=== PATIENT | male | born 1965 | race Caucasian/White ===

== ENCOUNTER 2018-01-02 19:27 | Inpatient (IN) | payer OTHER, MEDICAID ==
[~2018-01-02] VITALS: Ht 170.2 cm; Wt 77.1 kg
[~2018-01-02 19:27] MED LIST: GABA300C PO; LEVO500T6 PO; PHEN-329 PO; TAMS0.4C96 PO; TRAM50TA3 PO
[2018-01-02 19:37] VITALS: BP 114/56
[2018-01-02] MEDS ORDERED: ACETAMINOPHEN EXTRA STRENGTH 500 MG TAB PO ONE (19:45)
[2018-01-02] MEDS ORDERED: ONDANSETRON 4 MG/2 ML VIAL IVP ONE (20:15)
[2018-01-02] MEDS ORDERED: NACL 0.9% 1,000 ML IV ONE ×2 (20:15→23:30)
[2018-01-02 21:08] LABS: BASOPHILS # (AUTO) 0.2 K/uL (0.00-0.22); EOSINOPHILS % (AUTO) 0.2 % (0.0-4.0); HEMATOCRIT 32.5 % (36-52); HEMOGLOBIN 11.2 g/dL (12.0-18.0); LYMPHOCYTES % (AUTO) 10.7 % (20.5-51.1); MEAN CORPUSCULAR HEMOGLOBIN 35 pg (27-31); MEAN CORPUSCULAR HGB CONC 35 g/dL (33-37); MONOCYTES # (AUTO) 1.2 K/uL (0.8-1.0); MONOCYTES % (AUTO) 6.6 % (1.7-9.3); NEUTROPHILS # (AUTO) 15.1 K/uL (1.8-7.7); NEUTROPHILS % (AUTO) 81.5 % (42.2-75.2); PLATELET COUNT (AUTO) 142 K/uL (140-450); RED BLOOD CELL COUNT(AUTO) 3.18 MIL/uL (4.20-6.10); WHITE BLOOD COUNT (AUTO) 18.5 K/uL (4.8-10.8)
[2018-01-02 21:37] LABS: ALBUMIN 1.4 g/dL (3.4-5.0); ANION GAP 18.1 (8-16); CARBON DIOXIDE 22.8 mmol/L (21-32); CREATININE 1.1 mg/dL (0.7-1.3); TOTAL BILIRUBIN 1.5 mg/dL (0.0-1.0)
[2018-01-02 21:40] LABS: POTASSIUM 2.9 mmol/L (3.5-5.1)
[2018-01-02] MEDS ORDERED: KCL 20 MEQ/WATER INJ PREMIX 100 ML IV ONE (21:40)
[2018-01-02] MEDS ORDERED: metroNIDAZOLE 500 MG/NS PREMIX 100 ML IV ONE (23:30)
[2018-01-02] MEDS ORDERED: LEVOFLOXACIN 750 MG/D5W PREMIX 150 ML IV ONE (23:30)
[2018-01-02] MEDS ORDERED: ZOLPIDEM 5 MG TAB PO PRN (23:35)
[2018-01-02] MEDS ORDERED: DOCUSATE SODIUM 100 MG GELCAP PO PRN (23:35)
[2018-01-02] MEDS ORDERED: LORazepam 2 MG/ML VIAL IM/IVP PRN (23:35)
[2018-01-02] MEDS ORDERED: ACETAMINOPHEN 325 MG TAB PO PRN (23:35)
[2018-01-02] MEDS ORDERED: HYDROcodone/APAP 5/325 MG 1 TAB TAB PO PRN (23:35)
[2018-01-02] MEDS ORDERED: traMADol 50 MG TAB PO PRN (23:45)
[2018-01-03] MEDS ORDERED: NACL 0.9% 1,000 ML IV SCH
[2018-01-03 00:03] LABS: PROTHROMBIN TIME 10.8 secs (10.8-13.4)
[2018-01-03 00:05] LABS: PHOSPHORUS 1.2 mg/dL (2.5-4.9); THYROID STIMULATING HORMONE 1.7 uIU/mL (0.34-3.74)
[2018-01-03] MEDS ORDERED: INSULIN LISPRO SLIDING SCALE 100 UNITS/ML VIAL SUBQ PRN (00:15)
[2018-01-03] MEDS ORDERED: DEXTROSE 50% 50 ML SYR IVP PRN (00:15)
[2018-01-03 00:35] VITALS: BP 114/73
[2018-01-03 01:01] LABS: CHOL/HDL RATIO 15.8 (1-4.5)
[2018-01-03] MEDS ORDERED: SODIUM PHOS / POTASSIUM PHOS 1 PKT PDR PO SCH ×2 (03:00→13:00)
[2018-01-03] MEDS ORDERED: Z-GUARD PASTE TP PRN (03:30)
[2018-01-03 04:31] LABS: APPEARANCE,URINE SL CLOUDY (CLEAR); BILIRUBIN,URINE SMALL (NEGATIVE); BLOOD, URINE LARGE (NEGATIVE); COLOR,URINE YELLOW (YELLOW); NITRITE, URINE NEGATIVE (NEGATIVE); UGLUCOSE NEGATIVE (NEGATIVE)
[2018-01-03 04:32] LABS: LEUKOCYTE ESTERASE ,URINE 2+ (NEGATIVE)
[2018-01-03 04:35] LABS: BARBITURATE, URINE NEG. ng/ml (NEG <=200); BENZODIAZEPINE, URINE NEG. ng/mL (NEG <=200); CANNABINOID, URINE NEG. ng/mL (NEG <=50); COCAINE, URINE NEG. ng/mL (NEG <=300); PHENCYCLIDINE SCREEN,URINE NEG. ng/mL (NEG <=25)
[2018-01-03 04:37] LABS: RBC,URINE 3-10 (FEW) /HPF (0-5)
[2018-01-03 05:50] LABS: OPIATE, URINE NEG. ng/mL (NEG <=2000)
[2018-01-03 05:54] VITALS: BP 112/70
[2018-01-03] MEDS: metroNIDAZOLE 500 MG/NS PREMIX 100 ML IV SCH ×3 (06:35→23:37)
[2018-01-03] MEDS: BLOOD GLUCOSE MONITORING 1 DEV DEV FS SCH ×4 (06:38→20:53)
[2018-01-03 07:39] LABS: HEMATOCRIT 30.3 % (36-52); HEMOGLOBIN 10.3 g/dL (12.0-18.0); MEAN CORPUSCULAR HEMOGLOBIN 35 pg (27-31); MEAN CORPUSCULAR HGB CONC 34 g/dL (33-37); MEAN CORPUSCULAR VOLUME 103.1 fL (80-94); PLATELET COUNT (AUTO) 127 K/uL (140-450); RED BLOOD CELL COUNT(AUTO) 2.94 MIL/uL (4.20-6.10); RED CELL DISTRIBUTION WIDTH 14.1 % (11.6-13.7); WHITE BLOOD COUNT (AUTO) 17.5 K/uL (4.8-10.8)
[2018-01-03 08:00] VITALS: BP 117/61
[2018-01-03] MEDS: ONDANSETRON 4 MG/2 ML VIAL IM/IVP PRN ×2 (08:16→14:42)
[2018-01-03] MEDS: PHENAZOPYRIDINE 100 MG TAB PO SCH ×3 (08:16→17:07)
[2018-01-03] MEDS: GABAPENTIN 300 MG CAP PO SCH ×3 (08:16→17:07)
[2018-01-03 08:19] LABS: LYMPHOCYTES % (MANUAL) 7 % (20-46); MONOCYTES % (MANUAL) 7 % (5-12)
[2018-01-03] MEDS: LACTOBACILLUS RHAMNOSUS GG 1 EACH CAP PO SCH (08:19)
[2018-01-03] MEDS: DEXT 5% /NACL 0.9% 1,000 ML IV SCH ×3 (08:19→19:40)
[2018-01-03 08:48] LABS: ANION GAP 13.7 (8-16); CARBON DIOXIDE 25.9 mmol/L (21-32); CREATININE 1.1 mg/dL (0.7-1.3); POTASSIUM 3.6 mmol/L (3.5-5.1)
[2018-01-03 08:58] LABS: PHOSPHORUS 1.6 mg/dL (2.5-4.9)
[2018-01-03] MEDS ORDERED: SKINTEGRITY HYDROGEL TP SCH (10:00)
[2018-01-03 12:00] VITALS: BP 124/77
[2018-01-03] MEDS ORDERED: THERAHONEY GEL 42.5 GM TP SCH (12:00)
[2018-01-03 13:44] LABS: ANION GAP 13.6 (8-16); CARBON DIOXIDE 26.1 mmol/L (21-32); CREATININE 1.1 mg/dL (0.7-1.3); POTASSIUM 3.7 mmol/L (3.5-5.1)
[2018-01-03] MEDS: HYDRAGUARD CREAM TP SCH (14:25)
[2018-01-03] MEDS ORDERED: BENZOCAINE/MENTHOL 1 LOZ MM PRN (15:10)
[2018-01-03] MEDS ORDERED: SIMETHICONE 80 MG TAB.CHEW PO PRN (15:10)
[2018-01-03 16:00] VITALS: BP 130/78
[2018-01-03 20:00] VITALS: BP 102/59
[2018-01-03] MEDS: TAMSULOSIN 0.4 MG CAP PO SCH (21:01)
[2018-01-04] VITALS: BP 92/51
[2018-01-04] MEDS: HYDRAGUARD CREAM TP SCH ×2 (00:25→13:51)
[2018-01-04] MEDS: LEVOFLOXACIN 750 MG/D5W PREMIX 150 ML IV SCH ×2 (00:25→23:12)
[2018-01-04 04:00] VITALS: BP 119/75
[2018-01-04] MEDS: DEXT 5% /NACL 0.9% 1,000 ML IV SCH ×3 (04:01→19:00)
[2018-01-04] MEDS: BLOOD GLUCOSE MONITORING 1 DEV DEV FS SCH ×3 (05:45→17:09)
[2018-01-04] MEDS: metroNIDAZOLE 500 MG/NS PREMIX 100 ML IV SCH ×3 (06:15→22:05)
[2018-01-04 07:53] LABS: HEMATOCRIT 30.2 % (36-52); HEMOGLOBIN 10.3 g/dL (12.0-18.0); MEAN CORPUSCULAR HEMOGLOBIN 36 pg (27-31); MEAN CORPUSCULAR HGB CONC 34 g/dL (33-37); MEAN CORPUSCULAR VOLUME 104.9 fL (80-94); PLATELET COUNT (AUTO) 141 K/uL (140-450); RED BLOOD CELL COUNT(AUTO) 2.88 MIL/uL (4.20-6.10); RED CELL DISTRIBUTION WIDTH 13.9 % (11.6-13.7); WHITE BLOOD COUNT (AUTO) 15.5 K/uL (4.8-10.8)
[2018-01-04 08:00] VITALS: BP_SYST 126; BP_SYST 140; BP_DIAS 68; BP_DIAS 84
[2018-01-04 08:12] LABS: ANION GAP 8.9 (8-16); CARBON DIOXIDE 28.1 mmol/L (21-32); CREATININE 0.9 mg/dL (0.7-1.3)
[2018-01-04 08:17] LABS: MAGNESIUM 1.9 mg/dL (1.8-2.4); PHOSPHORUS 2.1 mg/dL (2.5-4.9)
[2018-01-04] MEDS: ASCORBIC ACID 500 MG TAB PO SCH (08:29)
[2018-01-04] MEDS: GABAPENTIN 300 MG CAP PO SCH ×3 (08:29→17:44)
[2018-01-04] MEDS: FERROUS GLUCONATE 324 MG TAB PO SCH (08:29)
[2018-01-04] MEDS: PHENAZOPYRIDINE 100 MG TAB PO SCH ×3 (08:30→17:44)
[2018-01-04] MEDS: LACTOBACILLUS RHAMNOSUS GG 1 EACH CAP PO SCH (08:31)
[2018-01-04 08:45] LABS: BASOPHILS % (MANUAL) 0 % (0-2); EOSINOPHILS % (MANUAL) 0 % (0-4); LYMPHOCYTES % (MANUAL) 11 % (20-46); MONOCYTES % (MANUAL) 7 % (5-12)
[2018-01-04] MEDS ORDERED: THERAHONEY GEL 42.5 GM TP SCH (09:00)
[2018-01-04] MEDS ORDERED: SODIUM PHOS / POTASSIUM PHOS 1 PKT PDR PO SCH (09:00)
[2018-01-04] MEDS: THERAHONEY GEL 42.5 GM TP SCH (10:04)
[2018-01-04 12:00] VITALS: BP 140/84
[2018-01-04] MEDS ORDERED: POTASSIUM CHLORIDE 10 MEQ TABER PO SCH (13:30)
[2018-01-04 16:00] VITALS: BP 142/89
[2018-01-04 20:00] VITALS: BP 164/89
[2018-01-04] MEDS: TAMSULOSIN 0.4 MG CAP PO SCH (20:27)
[2018-01-04] MEDS: ONDANSETRON 4 MG/2 ML VIAL IM/IVP PRN (20:32)
[2018-01-05] VITALS: BP 104/62
[2018-01-05] MEDS: HYDRAGUARD CREAM TP SCH ×2 (01:00→13:18)
[2018-01-05] MEDS: DEXT 5% /NACL 0.9% 1,000 ML IV SCH ×2 (01:01→06:35)
[2018-01-05 04:00] VITALS: BP 134/80
[2018-01-05] MEDS: metroNIDAZOLE 500 MG/NS PREMIX 100 ML IV SCH ×2 (06:27→15:44)
[2018-01-05 07:10] LABS: HEMATOCRIT 29.9 % (36-52); HEMOGLOBIN 10.2 g/dL (12.0-18.0); MEAN CORPUSCULAR HEMOGLOBIN 36 pg (27-31); MEAN CORPUSCULAR HGB CONC 34 g/dL (33-37); MEAN CORPUSCULAR VOLUME 104.4 fL (80-94); PLATELET COUNT (AUTO) 169 K/uL (140-450); RED BLOOD CELL COUNT(AUTO) 2.87 MIL/uL (4.20-6.10); RED CELL DISTRIBUTION WIDTH 14.2 % (11.6-13.7)
[2018-01-05 07:44] LABS: LYMPHOCYTES % (MANUAL) 14 % (20-46); METAMYELOCYTES % 3 % (0-0); MONOCYTES % (MANUAL) 8 % (5-12)
[2018-01-05 07:49] LABS: MAGNESIUM 1.6 mg/dL (1.8-2.4); PHOSPHORUS 1.7 mg/dL (2.5-4.9)
[2018-01-05 08:00] VITALS: BP 133/82
[2018-01-05] MEDS: GABAPENTIN 300 MG CAP PO SCH ×3 (08:22→17:15)
[2018-01-05] MEDS: FERROUS GLUCONATE 324 MG TAB PO SCH (08:22)
[2018-01-05] MEDS: ASCORBIC ACID 500 MG TAB PO SCH (08:22)
[2018-01-05] MEDS: LACTOBACILLUS RHAMNOSUS GG 1 EACH CAP PO SCH (08:23)
[2018-01-05] MEDS: PHENAZOPYRIDINE 100 MG TAB PO SCH ×2 (08:23→13:18)
[2018-01-05] MEDS: THERAHONEY GEL 42.5 GM TP SCH (08:26)
[2018-01-05 09:50] LABS: POTASSIUM 3.3 mmol/L (3.5-5.1)
[2018-01-05 09:51] LABS: ANION GAP 11.4 (8-16); CARBON DIOXIDE 23.9 mmol/L (21-32); CREATININE 0.9 mg/dL (0.7-1.3)
[2018-01-05] MEDS ORDERED: POTASSIUM CHLORIDE 10 MEQ TABER PO SCH (14:00)
[2018-01-05] MEDS ORDERED: MAG SULF 2000 MG/WATER PREMIX 100 ML IV ONE (15:45)
[2018-01-05 16:00] VITALS: BP 135/80
[2018-01-05] MEDS ORDERED: SODIUM PHOS / POTASSIUM PHOS 1 PKT PDR PO SCH (16:00)
[2018-01-05] MEDS ORDERED: HYDROCOLLOID DRESSING TP PRN (16:00)
[2018-01-05] MEDS ORDERED: MAGNESIUM SULFATE 4GM in STERILE WATER 100 ML PREMIX IV SCH (17:00)
[2018-01-05] MEDS: NACL 0.9% 1,000 ML IV SCH (17:13)
[2018-01-05] MEDS: HYDROCOLLOID DRESSING TP SCH ×2 (17:19→21:11)
[2018-01-05] MEDS: PIPER/TAZO 3.375GM/D5W PREMIX 50 ML IV SCH (19:02)
[2018-01-05] MEDS: TAMSULOSIN 0.4 MG CAP PO SCH (21:00)
[2018-01-06 00:30] VITALS: BP 135/80
[2018-01-06] MEDS: HYDRAGUARD CREAM TP SCH ×2 (00:35→12:29)
[2018-01-06] MEDS: PIPER/TAZO 3.375GM/D5W PREMIX 50 ML IV SCH ×3 (00:35→12:27)
[2018-01-06 07:03] LABS: HEMATOCRIT 30.7 % (36-52); HEMOGLOBIN 10.3 g/dL (12.0-18.0); MEAN CORPUSCULAR HEMOGLOBIN 35 pg (27-31); MEAN CORPUSCULAR HGB CONC 34 g/dL (33-37); MEAN CORPUSCULAR VOLUME 104.4 fL (80-94); PLATELET COUNT (AUTO) 184 K/uL (140-450); RED BLOOD CELL COUNT(AUTO) 2.94 MIL/uL (4.20-6.10); RED CELL DISTRIBUTION WIDTH 14.3 % (11.6-13.7); WHITE BLOOD COUNT (AUTO) 18.3 K/uL (4.8-10.8)
[2018-01-06 07:07] LABS: ANION GAP 6.9 (8-16); CARBON DIOXIDE 26.8 mmol/L (21-32); CREATININE 0.8 mg/dL (0.7-1.3); POTASSIUM 3.7 mmol/L (3.5-5.1)
[2018-01-06 07:19] LABS: MAGNESIUM 2.2 mg/dL (1.8-2.4); PHOSPHORUS 1.8 mg/dL (2.5-4.9)
[2018-01-06] MEDS ORDERED: ZGUARD TP (07:43)
[2018-01-06] MEDS ORDERED: Hydraguard TP (07:43)
[2018-01-06] MEDS ORDERED: Therahoney Gel TP (07:43)
[2018-01-06] MEDS ORDERED: ONDA2SOL45 IM/IVP (07:43)
[2018-01-06] MEDS ORDERED: ACET-9525 PO (07:43)
[2018-01-06] MEDS ORDERED: MULT-405 PO (07:43)
[2018-01-06] MEDS ORDERED: BENZ1LOZ93 MM (07:43)
[2018-01-06 08:00] VITALS: BP 131/84
[2018-01-06 08:28] LABS: LYMPHOCYTES % (MANUAL) 15 % (20-46); MONOCYTES % (MANUAL) 7 % (5-12)
[2018-01-06] MEDS: ASCORBIC ACID 500 MG TAB PO SCH (08:45)
[2018-01-06] MEDS: LACTOBACILLUS RHAMNOSUS GG 1 EACH CAP PO SCH (08:45)
[2018-01-06] MEDS: GABAPENTIN 300 MG CAP PO SCH ×2 (08:45→12:27)
[2018-01-06] MEDS: FERROUS GLUCONATE 324 MG TAB PO SCH (08:46)
[2018-01-06] MEDS: THERAHONEY GEL 42.5 GM TP SCH (08:51)
[2018-01-06] MEDS: NACL 0.9% 1,000 ML IV SCH (08:52)
[2018-01-06] MEDS ORDERED: MULTIVITAMIN 1 TAB PO SCH (09:00)
[2018-01-06] MEDS ORDERED: PIPE1SOL IV (09:16)
== END 2018-01-06 13:10 | DRG 871 ==
LOC: MED 19:27 → MTU 23:34
PROVIDERS: ADMIT General Practice; ATTEND General Practice
DX: A41.51 Sepsis due to Escherichia coli [E. coli] (principal); L89.323 Pressure ulcer of left buttock, stage 3; L89.313 Pressure ulcer of right buttock, stage 3; L89.154 Pressure ulcer of sacral region, stage 4; E43 Unspecified severe protein-calorie malnutrition; D68.59 Other primary thrombophilia; E87.1 Hypo-osmolality and hyponatremia; G82.20 Paraplegia, unspecified; L03.317 Cellulitis of buttock; N12 Tubulo-interstitial nephritis, not specified as acute or chronic; E83.39 Other disorders of phosphorus metabolism; D50.9 Iron deficiency anemia, unspecified; R65.20 Severe sepsis without septic shock; K52.9 Noninfective gastroenteritis and colitis, unspecified; R74.0 Nonspecific elevation of levels of transaminase and lactic acid dehydrogenase [LDH]; D69.6 Thrombocytopenia, unspecified; N20.0 Calculus of kidney; E11.40 Type 2 diabetes mellitus with diabetic neuropathy, unspecified; L30.9 Dermatitis, unspecified; R32 Unspecified urinary incontinence; B96.20 Unspecified Escherichia coli [E. coli] as the cause of diseases classified elsewhere; R94.5 Abnormal results of liver function studies; R15.9 Full incontinence of feces; E78.5 Hyperlipidemia, unspecified; E83.42 Hypomagnesemia; N31.9 Neuromuscular dysfunction of bladder, unspecified; D75.89 Other specified diseases of blood and blood-forming organs; E87.6 Hypokalemia; E11.65 Type 2 diabetes mellitus with hyperglycemia; Z68.26 Body mass index [BMI] 26.0-26.9, adult; Z87.891 Personal history of nicotine dependence; Z79.899 Other long term (current) drug therapy
CPT/HCPCS: 36415; 71045; 74250; 76700; 76770; 80048; 80053; 80305; 81001; 82607; 82728; 82746; 82948; 83036; 83540; 83605; 83690; 83735; 84100; 84134; 84443; 85025; 85045; 85610; 85730; 87040; 87070; 87081; 87086; 87186; 87804; 93005; 93925; 93970; 96361; 96365; 96375; 99285; A6248; C1758; J1644; J1815; J1956; J2405; J2543; J3480; J3490; J7030; J7042; Q0092

== ENCOUNTER 2018-01-12 19:22 | Inpatient (IN) | payer OTHER, MEDICAID ==
[~2018-01-12] VITALS: Ht 170.2 cm; Wt 87.1 kg
[~2018-01-12 19:22] MED LIST changes: +ACET-9525 PO; +BENZ1LOZ93 MM; +Hydraguard TP; -LEVO500T6 PO; +MULT-405 PO; +ONDA2SOL45 IM/IVP; +PIPE1SOL IV; +Therahoney Gel TP; +ZGUARD TP
[2018-01-12 19:26] VITALS: BP 136/86
--- NOTE | 2018-01-12 19:26 | NUR ---
PT BIB [facility] TO ER BED 4T
--- NOTE | 2018-01-12 19:30 | NUR ---
52 YO MALE BIBA FROM [facility]. PT STATES HE WAS DISCHARGED RECENTLY FROM [facility] FOR BLOOD INFECTION. PT AAOX4 FOLLOWING COMMANDS. ST 120S BLE +3-4 EDEMA PRESENT SCROTAL EDEMA. ABD SOFT NON DISTENDED, PT INCONTINENT WITH ADULT PAD IN PLACE, SKIN NON INTACT, SKIN BREAKDOWN TO SACRAL AREA NOTED. REDNESS TO JUVE, AREA AND GENITAL AREA NOTED. PMH: NEUROGENIC BLADDER, BACTEREMIA, PARAPLEGIA TO BLE, BACTERMIA, MDRO
[2018-01-12] MEDS ORDERED: FURO-572 PO (19:40)
[2018-01-12] MEDS ORDERED: POTA10TE30 PO (19:40)
[2018-01-12 20:12] LABS: HEMATOCRIT 27.2 % (36-52); HEMOGLOBIN 9.1 g/dL (12.0-18.0); MEAN CORPUSCULAR HEMOGLOBIN 35 pg (27-31); MEAN CORPUSCULAR HGB CONC 33 g/dL (33-37); MEAN CORPUSCULAR VOLUME 105.6 fL (80-94); PLATELET COUNT (AUTO) 346 K/uL (140-450); RED BLOOD CELL COUNT(AUTO) 2.58 MIL/uL (4.20-6.10); RED CELL DISTRIBUTION WIDTH 14.5 % (11.6-13.7); WHITE BLOOD COUNT (AUTO) 26.5 K/uL (4.8-10.8)
[2018-01-12 20:36] LABS: ANION GAP 14.1 (8-16); CARBON DIOXIDE 28.6 mmol/L (21-32); CREATININE 0.8 mg/dL (0.7-1.3); POTASSIUM 3.7 mmol/L (3.5-5.1)
[2018-01-12 20:41] LABS: ALBUMIN 1.6 g/dL (3.4-5.0); TOTAL BILIRUBIN 0.5 mg/dL (0.0-1.0)
[2018-01-12 20:49] LABS: EOSINOPHILS % (MANUAL) 2 % (0-4); LYMPHOCYTES % (MANUAL) 13 % (20-46); MONOCYTES % (MANUAL) 4 % (5-12)
--- NOTE | 2018-01-12 21:30 | NUR ---
PT SITTING UP IN BED DENIES PAIN @ THIS TIME. VSS WILL CONTINUE TO MONITOR.
[2018-01-12] MEDS ORDERED: PIPERACILLIN/TAZOBACTAM 3.375 GM in DEXTROSE 5% 50 ML IV ONE (21:40)
[2018-01-12] MEDS ORDERED: NACL 0.9% 1,500 ML IV ONE (21:40)
[2018-01-12] MEDS ORDERED: PIPERACILLIN/TAZOBACTAM 3.375 GM VIAL IV ONE (22:15)
[2018-01-12] MEDS ORDERED: NACL 0.9% 1,000 ML IV ONE ×2 (22:35→23:00)
[2018-01-12] MEDS ORDERED: HYDROcodone/APAP 7.5/325 MG 1 TAB PO PRN (22:50)
[2018-01-12] MEDS ORDERED: DOCUSATE SODIUM 100 MG GELCAP PO PRN (22:50)
[2018-01-12] MEDS ORDERED: ACETAMINOPHEN 325 MG TAB PO PRN (22:50)
[2018-01-12] MEDS ORDERED: ONDANSETRON 4 MG/2 ML VIAL IM/IVP PRN (22:50)
[2018-01-12] MEDS: NACL 0.9% 1,000 ML IV SCH (23:12)
[2018-01-13 00:09] LABS: PROTHROMBIN TIME 9.8 secs (10.8-13.4)
--- NOTE | 2018-01-13 00:15 | NUR ---
Patient will be admitted to care of DR. HAY. Admited to 113A, [facility] Belongings list completed. Report to PB SZYMANSKI.
[2018-01-13 00:20] LABS: CHOL/HDL RATIO 7.2 (1-4.5); FREE T4 (FREE THYROXINE) 0.98 ng/dL (0.76-1.46); MAGNESIUM 1.6 mg/dL (1.8-2.4); PHOSPHORUS 3.1 mg/dL (2.5-4.9); THYROID STIMULATING HORMONE 6.39 uIU/mL (0.34-3.74)
[2018-01-13 00:30] VITALS: BP 128/78
--- NOTE | 2018-01-13 00:30 | NUR ---
RECEIVED BEDSIDE REPORT FROM STEPHON SALDAÑA, PATIENT TRANSPORTED FROM [facility] TO BED, ON RA, NO SIGNS OF ACUTE DISTRESS, ONE IV IN LEFT FA 20 G SL, 2ND IN RIGHT AC 20 G, NOTED BRUISING. PATIENT STATES "IT HURTS", D/C IV IN RIGHT AC. NOTED EDEMA IN LOWER EXTREMITIES, 3+ PITTING, NOTED WOUND ON RIGHT AND LEFT BUTTOCK, PICTURE TAKEN IN ER. V/S TAKEN BP 128/76, HR 117, TEMP 98.9 F, RR 18 O2SAT 98%, DENIES PAIN. MRSA SCREEN COLLECTED AND SENT TO LAB, WOUND SAMPLE COLLECTED AND SENT TO LAB. LUNG SOUNDS ARE CLEAR. EXPLAINED PLAN OF CARE, UPDATED BOARD, BED ALARM ON. CALL LIGHT WITHIN REACH, WILL CONTINUE TO MONITOR. Addendum: 01/13/18 at 0605 by Marybeth Tena RN LUNG SOUNDS DIMINISHED
[2018-01-13 00:44] LABS: BARBITURATE, URINE NEG. ng/ml (NEG <=200); BENZODIAZEPINE, URINE NEG. ng/mL (NEG <=200); CANNABINOID, URINE NEG. ng/mL (NEG <=50); COCAINE, URINE NEG. ng/mL (NEG <=300); OPIATE, URINE NEG. ng/mL (NEG <=2000); PHENCYCLIDINE SCREEN,URINE NEG. ng/mL (NEG <=25)
[2018-01-13 01:01] LABS: APPEARANCE,URINE CLEAR (CLEAR); BILIRUBIN,URINE NEGATIVE (NEGATIVE); BLOOD, URINE NEGATIVE (NEGATIVE); COLOR,URINE YELLOW (YELLOW); LEUKOCYTE ESTERASE ,URINE NEGATIVE (NEGATIVE); NITRITE, URINE NEGATIVE (NEGATIVE); PH,URINE 5.5 (5.0-9.0); UGLUCOSE NEGATIVE (NEGATIVE)
[2018-01-13] MEDS: NACL 0.9% 1,000 ML IV SCH ×2 (01:07→09:41)
--- NOTE | 2018-01-13 01:07 | NUR ---
STARTED IVF WITH NS AT 100 ML/HR IN LEFT FA 20 G.
[2018-01-13] MEDS ORDERED: MAGNESIUM OXIDE 400 MG TAB PO ONE (01:15)
--- NOTE | 2018-01-13 02:24 | NUR ---
DUE MAG OX GIVEN PATIENT TOLERATED WELL. EDUCATION PROVIDED.
[2018-01-13 04:00] VITALS: BP 118/77
--- NOTE | 2018-01-13 04:30 | NUR ---
REPOSITIONED PATIENT FOR COMFORT, APPLIED DRESSING TO WOUND AND CLEANSED, PATIENT HAD 1 LARGE BM.
[2018-01-13] MEDS ORDERED: ALBUTEROL SULFATE/IPRATROPIU 3 ML SOL IH PRN (06:05)
--- NOTE | 2018-01-13 06:05 | NUR ---
PATIENT RESTING IN BED, NO SIGNS OF DISTRESS, CALL LIGHT WITH IN REACH.
[2018-01-13 06:51] LABS: HEMATOCRIT 26.9 % (36-52); HEMOGLOBIN 8.9 g/dL (12.0-18.0); MEAN CORPUSCULAR HEMOGLOBIN 35 pg (27-31); MEAN CORPUSCULAR HGB CONC 33 g/dL (33-37); PLATELET COUNT (AUTO) 324 K/uL (140-450); RED BLOOD CELL COUNT(AUTO) 2.52 MIL/uL (4.20-6.10); RED CELL DISTRIBUTION WIDTH 14.4 % (11.6-13.7); WHITE BLOOD COUNT (AUTO) 23.2 K/uL (4.8-10.8)
[2018-01-13 07:17] LABS: LYMPHOCYTES % (MANUAL) 15 % (20-46)
[2018-01-13 07:18] LABS: EOSINOPHILS % (MANUAL) 4 % (0-4); MONOCYTES % (MANUAL) 3 % (5-12)
--- NOTE | 2018-01-13 07:28 | NUR ---
ENDORSED PATIENT TO DAY SHIFT NURSE PATIENT STABLE.
[2018-01-13 07:31] LABS: ANION GAP 11.2 (8-16); CARBON DIOXIDE 28.2 mmol/L (21-32); CREATININE 0.6 mg/dL (0.7-1.3); POTASSIUM 3.4 mmol/L (3.5-5.1)
[2018-01-13 08:00] VITALS: BP 120/70
--- NOTE | 2018-01-13 08:00 | NUR ---
PATIENT WAS AWAKE, ALERT. RESPIRATION EVEN, UNLABOR ON ROOM AIR. SKIN DRY AND WARM. IV PATENT AND INTACT. DENIED PAIN, SOB AT THIS TIME. PLAN OF CARE WAS DISCUSSED WITH PATIENT. BED AT LOW POSITION, SIDE RAILS UP. CALL LIGHT WITHIN REACH.
[2018-01-13] MEDS ORDERED: VANCOMYCIN PER PHARMACY MC PRN (08:05)
--- NOTE | 2018-01-13 08:33 | NUR ---
PATIENT HAS BEEN SCREENED AND CATEGORIZED HIGH NUTRITION RISK. PATIENT WILL BE SEEN WITHIN 1-2 DAYS OF ADMISSION. 01/13/18-01/14/[address]
[2018-01-13] MEDS ORDERED: VANCOMYCIN 1GM/DEXT 5% PREMIX 200 ML IV SCH (09:00)
[2018-01-13] MEDS: GABAPENTIN 300 MG CAP PO SCH ×3 (09:04→17:06)
[2018-01-13] MEDS: FOLIC ACID 1 MG TAB PO SCH (09:04)
[2018-01-13] MEDS: FUROSEMIDE 20 MG TAB PO SCH ×2 (09:04→20:51)
[2018-01-13] MEDS: MAGNESIUM OXIDE 400 MG TAB PO SCH (09:04)
[2018-01-13] MEDS: CYANOCOBALAMIN 100 MCG TAB PO SCH (09:04)
[2018-01-13] MEDS ORDERED: POTASSIUM CHLORIDE 10 MEQ TABER PO SCH (09:30)
[2018-01-13] MEDS: VANCOMYCIN 1,250 MG in DEXTROSE 5% 250 ML IV SCH ×2 (09:42→17:47)
[2018-01-13 10:09] LABS: MAGNESIUM 1.6 mg/dL (1.8-2.4); PHOSPHORUS 2.7 mg/dL (2.5-4.9)
--- NOTE | 2018-01-13 10:09 | NUR ---
PATIENT WAS AWAKE, ALERT. RESPIRATION EVEN, UNLABOR ON ROOM AIR. MEDS WERE GIVEN PER ORDER. WOUND DRESSING WAS CHANGED, DENIED PAIN. PATIENT TOLERATED WELL. NO DISTRESS NOTED. CALL LIGHT WITHIN REACH
--- NOTE | 2018-01-13 10:30 | NUR ---
PERINEAL CARE WAS GIVEN, WOUND DRESSING WAS CHANGED
--- NOTE | 2018-01-13 11:54 | NUR ---
PATIENT WAS AWAKE, ALERT. RESPIRATION EVEN, UNLABOR ON ROOM AIR. DENIED PAIN AT THIS TIME. IV PATENT AND INTACT. NO DISTRESS NOTED. CALL LIGHT WITHIN REACH
[2018-01-13 12:00] VITALS: BP 117/69
[2018-01-13] MEDS: PIPER/TAZO 3.375GM/D5W PREMIX 50 ML IV SCH ×2 (12:22→17:06)
--- NOTE | 2018-01-13 12:25 | NUR ---
Business Unit Leader Note: On previous patient's hospital admission, patient was transfer to [facility] for continuity of care. I called Sung at [facility] to ask him if patient is on a 7 day bed hold, no answer, left message.
--- NOTE | 2018-01-13 13:24 | NUR ---
Men'S Garment Fitter Note: On previous patient's hospital admission, patient was transfer to [facility] for continuity of care. I called Sung at [facility] again to ask him if patient is on a 7 day bed hold, per Sung, patient is on a 7 day bed hold. Patient is one of [facility] skilled patients, not [facility] [employer] (group home care). Patient makes his own medical decisions. Flat Examiner and/or Leather Heel Breaster will follow up as needed.
--- NOTE | 2018-01-13 13:52 | NUR ---
PATIENT WAS AWAKE, ALERT. RESPIRATION EVEN, UNLABOR ON ROOM AIR. PATIENT WAS REPOSITIONED, PERINEAL CARE WAS GIVEN. WOUND DRESSING WERE CHANGED
--- NOTE | 2018-01-13 15:20 | NUR ---
01/13/18 RD INITIAL ASSESSMENT COMPLETED PLEASE REFER TO NUTRITION ASSESSMENT UNDER CARE ACTIVITY FOR ESTIMATED NUTRITIONAL NEEDS. 1. CONTINUE REGULAR DIET WITH ENSURE TOLERATED 2. RECOMMEND VITAMIN C 500 MG BID AND ZINC 200 MG QD TO PROMOTE WOUND HEALING 3. RD PROVIDED NUTRITION EDUCATION ON WOUND HEALING 4. RD TO FOLLOW-UP 5-7 DAYS, LOW RISK EDNTON PIERCE RD
--- NOTE | 2018-01-13 15:45 | NUR ---
IVF RATE WAS ADJUSTED 50CC/HR PER ORDER
[2018-01-13 16:00] VITALS: BP 128/74
--- NOTE | 2018-01-13 16:11 | NUR ---
PATIENT WAS AWAKE, ALERT. RESPIRATION EVEN, UNLABOR ON ROOM AIR. DENIED PAIN, N/V AT THIS TIME. IV PATENT AND INTACT. NO DISTRESS NOTED. CALL LIGHT WITHIN REACH
--- NOTE | 2018-01-13 16:43 | NUR ---
PATIENT WAS REPOSITIONED TO LEFT LATERAL, PERINEAL CARE WAS GIVEN. WOUND DRESSINGS WAS CHANGED. PATIENT TOLERATED WELL
[2018-01-13] MEDS ORDERED: SPIRONOLACTONE 25 MG TAB PO SCH (16:57)
--- NOTE | 2018-01-13 17:53 | NUR ---
PATIENT WAS AWAKE, ALERT, EATING DINNER COMFORTABLY. RESPIRATION EVEN, UNLABOR ON ROOM AIR. IV PATENT AND INTACT. MED WAS GIVEN PER ORDER. NO DISTRESS NOTED. CALL LIGHT WITHIN REACH
--- NOTE | 2018-01-13 19:22 | NUR ---
RECEIVED BEDSIDE REPORT FROM RN BRIAN, PATIENT IN BED, ON RA, FALL AND CONTACT PRECAUTIONS, IV IN LEFT FA INFUSING NS AT 50. PATIENT V/S TAKEN ALL WITHIN BASELINE, DENIES PAIN, REPOSITIONED FOR COMFORT. EXPLAINED PLAN OF CARE UPDATED BOARD WILL CONTINUE TO MONITOR.
--- NOTE | 2018-01-13 19:22 | NUR ---
ENDORSEMENT GIVEN TO CATTLE AND WHEAT FARMER NURSE. PATIENT IS STABLE AT THIS TIME
[2018-01-13 20:00] VITALS: BP 122/74
[2018-01-13] MEDS: TAMSULOSIN 0.4 MG CAP PO SCH (20:50)
[2018-01-13] MEDS: ATORVASTATIN 20 MG TAB PO SCH (20:50)
--- NOTE | 2018-01-13 21:00 | NUR ---
DUE MEDICATIONS GIVEN PATIENT TOLERATED WELL. WILL CONTINUE TO MONITOR.
[2018-01-14] VITALS: BP 113/63
--- NOTE | 2018-01-14 | NUR ---
V/S TAKEN NOTED HR 120. WILL CONTINUE TO MONITOR.
[2018-01-14] MEDS: PIPER/TAZO 3.375GM/D5W PREMIX 50 ML IV SCH ×5 (00:20→23:14)
--- NOTE | 2018-01-14 01:00 | NUR ---
CHANGES DRESSING, PATIENT DENIES PAIN WILL CONTINUE TO MONITOR.
[2018-01-14] MEDS: VANCOMYCIN 1,250 MG in DEXTROSE 5% 250 ML IV SCH (02:04)
--- NOTE | 2018-01-14 02:30 | NUR ---
DUE MEDICATIONS GIVEN PATIENT TOLERATED WELL WILL CONTINUE TO MONITOR.
[2018-01-14 04:00] VITALS: BP 118/70
--- NOTE | 2018-01-14 06:00 | NUR ---
PATIENT RESTING IN BED, DUE ANTIBIOTICS COMPLETED, CHANGED DRESSING ON SACRAL WOUND.
[2018-01-14 06:54] LABS: BASOPHILS # (AUTO) 0.2 K/uL (0.00-0.22); BASOPHILS % (AUTO) 1.4 % (0.0-2.0); EOSINOPHILS # (AUTO) 0.3 K/uL (0-0.4); EOSINOPHILS % (AUTO) 1.6 % (0.0-4.0); HEMATOCRIT 24.6 % (36-52); HEMOGLOBIN 8.3 g/dL (12.0-18.0); LYMPHOCYTES % (AUTO) 12.6 % (20.5-51.1); MEAN CORPUSCULAR HEMOGLOBIN 36 pg (27-31); MEAN CORPUSCULAR HGB CONC 34 g/dL (33-37); MONOCYTES # (AUTO) 0.9 K/uL (0.8-1.0); MONOCYTES % (AUTO) 5.8 % (1.7-9.3); NEUTROPHILS # (AUTO) 12.2 K/uL (1.8-7.7); NEUTROPHILS % (AUTO) 78.6 % (42.2-75.2); PLATELET COUNT (AUTO) 301 K/uL (140-450); RED CELL DISTRIBUTION WIDTH 14.2 % (11.6-13.7); WHITE BLOOD COUNT (AUTO) 15.6 K/uL (4.8-10.8)
[2018-01-14 07:02] LABS: ANION GAP 10.1 (8-16); CARBON DIOXIDE 28.5 mmol/L (21-32); CREATININE 0.7 mg/dL (0.7-1.3); POTASSIUM 3.6 mmol/L (3.5-5.1)
[2018-01-14 07:17] LABS: MAGNESIUM 1.7 mg/dL (1.8-2.4); PHOSPHORUS 2.4 mg/dL (2.5-4.9)
--- NOTE | 2018-01-14 07:29 | NUR ---
ENDORSED PATIENT TO DAY SHIFT NURSE, PATIENT STABLE.
--- NOTE | 2018-01-14 07:30 | NUR ---
RECEIVED REPORT FROM OFFICE MESSENGER NURSE. PATIENT LYING DOWN IN BED SLEEPING, AROUSABLE BY VOICE. NO DISTRESS NOTED. DENIES ANY PAIN. AAOX4, CALM, COOPERATIVE, SKIN COLOR APPROPRIATE TO ETHNICITY, WARM TO TOUCH. HAS SACRAL WOUNDS. WOUND NURSE EVAL SCHEDULED FOR LATER TODAY. RESPIRATIONS EVEN, UNLABORED, ON ROOM AIR. IV SITE INTACT, PATENT, AND INFUSING IVF PER MD ORDERS. B/L LE +2 PITTING EDEMA NOTED. SCROTAL EDEMA NOTED. REVIEWED PLAN OF CARE WITH PATIENT. PATIENT VERBALIZED UNDERSTANDING. SAFETY MEASURES IN PLACE, CALL LIGHT WITHIN REACH. WILL CONTINUE TO MONITOR.
[2018-01-14 08:00] VITALS: BP 112/63
[2018-01-14 08:41] LABS: T4 (THYROXINE) 4.9 ug/dL (4.5-12.0)
[2018-01-14] MEDS ORDERED: SPIRONOLACTONE 50 MG TAB PO SCH (09:00)
[2018-01-14] MEDS: ECOTRIN 81 MG TABEC PO SCH (09:27)
[2018-01-14] MEDS: FUROSEMIDE 20 MG TAB PO SCH ×2 (09:28→20:17)
[2018-01-14] MEDS: FOLIC ACID 1 MG TAB PO SCH (09:28)
[2018-01-14] MEDS: SPIRONOLACTONE 25 MG TAB PO SCH (09:29)
[2018-01-14] MEDS: ZINC SULF 220 MG CAP PO SCH (09:29)
[2018-01-14] MEDS: CYANOCOBALAMIN 100 MCG TAB PO SCH (09:29)
[2018-01-14] MEDS: MAGNESIUM OXIDE 400 MG TAB PO SCH (09:29)
[2018-01-14] MEDS: ASCORBIC ACID 500 MG TAB PO SCH (09:30)
[2018-01-14] MEDS: GABAPENTIN 300 MG CAP PO SCH ×3 (09:30→17:07)
[2018-01-14] MEDS: NACL 0.9% 1,000 ML IV SCH ×2 (09:35→14:50)
--- NOTE | 2018-01-14 09:41 | NUR ---
PATIENT SITTING IN BED COMFORTABLY. NO DISTRESS NOTED. DENIES ANY PAIN. ASSISTED HOME HEALTH SPECIALIST IN CLEANING. SACRAL WOUND DRESSING SOILED, CHANGED PER ORDERS. FECAL BAG APPLIED PATIENT AGREES TO TRY IT TO KEEP SACRAL WOUND FROM GETTING SOILED. SCHEDULED MEDICATIONS DUE GIVEN. WILL CONTINUE TO MONITOR.
--- NOTE | 2018-01-14 11:30 | NUR ---
PATIENT SITTING IN BED WATCHING TV. NO DISTRESS NOTED. CONDITION UNCHANGED. WILL CONTINUE TO MONITOR.
[2018-01-14 12:00] VITALS: BP 129/80
--- NOTE | 2018-01-14 13:30 | NUR ---
ASSISTED INVESTIGATION MANAGER IN CLEANING AND REPOSITIONING PATIENT. WILL CONTINUE TO MONITOR.
--- NOTE | 2018-01-14 14:24 | NUR ---
Bar Machine Operator Production Note: Michael from [facility] came to evaluate and meet with patient. Per Michael, patient is hesitant to be transfer to [facility] and stated he would prefer to return to [facility] , Michael stated he informed of patient's preference and will speak with patient and discuss plan of care.
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
[2018-01-14 16:00] VITALS: BP 125/72
[2018-01-14] MEDS ORDERED: MAGNESIUM OXIDE 400 MG TAB PO SCH (16:00)
[2018-01-14] MEDS ORDERED: SODIUM PHOS / POTASSIUM PHOS 1 PKT PDR PO SCH (16:00)
--- NOTE | 2018-01-14 17:09 | NUR ---
PATIENT SITTING IN BED WATCHING TV. NO DISTRESS NOTED. DENIES ANY PAIN. SCHEDULED MEDICATIONS DUE GIVEN. WILL CONTINUE TO MONITOR.
--- NOTE | 2018-01-14 19:30 | NUR ---
GAVE REPORT TO OUTBOUND SALES CONSULTANT NURSE FOR CONTINUITY OF CARE. PATIENT IN STABLE CONDITION.
--- NOTE | 2018-01-14 19:31 | NUR ---
REPORT RECEIVED FROM AM NURSE AT BEDSIDE. PT IN STABLE CONDITION. AAOX4. INTRODUCED SELF. BOARD UPDATED. PT HAS NO COMPLAINTS OF PAIN. NO SOB. PT AFEBRILE. IV SITE L FA 20G RUNNING NS@50ML/HR PATENT AND INTACT. SKIN WARM, DRY, AND NOT INTACT DUE TO AN OPEN WOUND FROM THE PERIANAL TO THE SACRAL AREA. BED LOCKED IN LOW POSITION. CALL GUARDADO WITHIN REACH. SAFETY PRECAUTIONS IN PLACE.
[2018-01-14 20:00] VITALS: BP 117/63
[2018-01-14] MEDS: TAMSULOSIN 0.4 MG CAP PO SCH (20:17)
[2018-01-14] MEDS: ATORVASTATIN 20 MG TAB PO SCH (20:17)
--- NOTE | 2018-01-14 20:17 | NUR ---
LASIX, FLOMAX, AND LIPITOR GIVEN PO. PT TOLERATED WELL.
--- NOTE | 2018-01-14 23:14 | NUR ---
RAFY HUNG AND RUNNING. PT TOLERATING WELL.
[2018-01-15] VITALS: BP 119/66
--- NOTE | 2018-01-15 01:45 | NUR ---
PT SLEEPING COMFORTABLY IN BED. NO S/S OF DISTRESS NOTED. WILL CONTINUE TO MONITOR.
--- NOTE | 2018-01-15 03:15 | NUR ---
PT SLEEPING COMFORTABLY BUT AROUSEABLE. VS ARE STABLE. NO S/S OF DISTRESS NOTED. WILL CONTINUE TO MONITOR.
[2018-01-15 04:00] VITALS: BP 113/66
--- NOTE | 2018-01-15 04:35 | NUR ---
VANCO TROUGH IS DUE TO BE DRAWN AT 0500 ON 01/16/18 BUT VANCO IS DUE ON 01/15 AT 0500. NOTIFIED OF THIS MISTAKE AND WILL CHANGE THE VANCO TROUGH TO NOW.
[2018-01-15] MEDS ORDERED: VANCOMYCIN 1GM/DEXT 5% PREMIX 200 ML IV SCH (05:00)
[2018-01-15] MEDS: PIPER/TAZO 3.375GM/D5W PREMIX 50 ML IV SCH ×2 (05:13→12:04)
--- NOTE | 2018-01-15 05:13 | NUR ---
RAFY HUNG AND RUNNING. PT TOLERATING WELL.
[2018-01-15 05:45] LABS: BASOPHILS # (AUTO) 0.2 K/uL (0.00-0.22); BASOPHILS % (AUTO) 1.1 % (0.0-2.0); EOSINOPHILS # (AUTO) 0.3 K/uL (0-0.4); EOSINOPHILS % (AUTO) 1.7 % (0.0-4.0); HEMATOCRIT 26.4 % (36-52); HEMOGLOBIN 8.7 g/dL (12.0-18.0); LYMPHOCYTES # (AUTO) 2.9 K/uL (2.0-11.5); LYMPHOCYTES % (AUTO) 16.4 % (20.5-51.1); MEAN CORPUSCULAR HEMOGLOBIN 35 pg (27-31); MEAN CORPUSCULAR HGB CONC 33 g/dL (33-37); MEAN CORPUSCULAR VOLUME 106.2 fL (80-94); MONOCYTES # (AUTO) 0.8 K/uL (0.8-1.0); MONOCYTES % (AUTO) 4.5 % (1.7-9.3); NEUTROPHILS # (AUTO) 13.5 K/uL (1.8-7.7); NEUTROPHILS % (AUTO) 76.3 % (42.2-75.2); PLATELET COUNT (AUTO) 366 K/uL (140-450); RED BLOOD CELL COUNT(AUTO) 2.49 MIL/uL (4.20-6.10); WHITE BLOOD COUNT (AUTO) 17.8 K/uL (4.8-10.8)
[2018-01-15 05:53] LABS: CREATININE 0.8 mg/dL (0.7-1.3)
--- NOTE | 2018-01-15 06:09 | NUR ---
VANCO TROUGH WAS 8.3. RESULTED @0608. ORDERS TO START VANCO IS TROUGH IS UNDER 20. VANCO HUNG AND RUNNING.
--- NOTE | 2018-01-15 07:25 | NUR ---
REPORT GIVEN TO AM NURSE AT BEDSIDE. PT IN STABLE CONDITION.
--- NOTE | 2018-01-15 07:30 | NUR ---
RECEIVED PATIENT AWAKE IN BED. NO S/S OF DISTRESS NOTED. PT ON TELE MONITORING. FALL PRECAUTIONS IN PLACE. WILL CONTINUE TO MONITOR
[2018-01-15 09:24] VITALS: BP 113/58
[2018-01-15] MEDS: MAGNESIUM OXIDE 400 MG TAB PO SCH (09:26)
[2018-01-15] MEDS: ZINC SULF 220 MG CAP PO SCH (09:26)
[2018-01-15] MEDS: ECOTRIN 81 MG TABEC PO SCH (09:26)
[2018-01-15] MEDS: GABAPENTIN 300 MG CAP PO SCH ×3 (09:26→16:45)
[2018-01-15] MEDS: FOLIC ACID 1 MG TAB PO SCH (09:27)
[2018-01-15] MEDS: FUROSEMIDE 20 MG TAB PO SCH ×2 (09:27→20:30)
[2018-01-15] MEDS: ASCORBIC ACID 500 MG TAB PO SCH (09:27)
[2018-01-15] MEDS: CYANOCOBALAMIN 100 MCG TAB PO SCH (09:27)
[2018-01-15] MEDS: SPIRONOLACTONE 25 MG TAB PO SCH (09:28)
--- NOTE | 2018-01-15 10:16 | NUR ---
Auto Body Repairer Note: I faxed patient's medical information to [facility]. I informed Jing from [facility] / plan is to transfer patient back to [facility] tomorrow.
--- NOTE | 2018-01-15 11:00 | NUR ---
PATIENT AWAKE IN BED, WATCHING TELEVISION. NO S/S OF DISTRESS NOTED
[2018-01-15 12:00] VITALS: BP 130/73
[2018-01-15] MEDS: NACL 0.9% 1,000 ML IV SCH (12:00)
[2018-01-15] MEDS ORDERED: HYDRAGUARD CREAM TP PRN (12:20)
[2018-01-15] MEDS ORDERED: Z-GUARD PASTE TP PRN (12:20)
[2018-01-15 12:51] LABS: PHOSPHORUS 2.8 mg/dL (2.5-4.9)
[2018-01-15] MEDS: HYDRAGUARD CREAM TP SCH (15:30)
[2018-01-15] MEDS: Z-GUARD PASTE TP SCH (15:30)
--- NOTE | 2018-01-15 15:30 | NUR ---
PATIENT TURNED AND REPOSITIONED FOR COMFORT. WOUND CARE DONE. DRESSING CHANGED PER WOUND CARE NURSE'S RECOMMENDATION
[2018-01-15 16:43] VITALS: BP 125/71
--- NOTE | 2018-01-15 19:15 | NUR ---
PATIENT REPORT GIVEN AT BEDSIDE. PATIENT ENDORSED IN STABLE CONDITION
--- NOTE | 2018-01-15 19:16 | NUR ---
REPORT RECEIVED FROM AM NURSE AT BEDSIDE. PT IN STABLE CONDITION. AAOX4. INTRODUCED SELF. BOARD UPDATED. NO COMPLAINTS OF PAIN. NO SOB. PT AFEBRILE. IV SITE L FA 20G RUNNING NS@50ML/HR PATENT AND INTACT. SKIN WARM, DRY, AND NOT INTACT DUE TO AN OPEN WOUNDS ON THE BUTTOCKS THAT GOES TO THE SACRAL AREA. WOUND BED LOCKED IN LOW POSITION. CALL GUARDADO WITHIN REACH. SAFETY PRECAUTIONS IN PLACE.
[2018-01-15 20:00] VITALS: BP 112/70
--- NOTE | 2018-01-15 20:19 | NUR ---
GRANT PAYAN AND WILMER. HEPARIN GIVEN SUBQ. PT TOLERATED WELL. Addendum: 01/16/18 at 0023 by John Rendon RN CHARTED ON WRONG PT.
[2018-01-15] MEDS: TAMSULOSIN 0.4 MG CAP PO SCH (20:29)
[2018-01-15] MEDS: MEROPENEM 1,000 MG in NACL 0.9% 100 ML IV SCH (20:30)
[2018-01-15] MEDS: ATORVASTATIN 20 MG TAB PO SCH (20:30)
--- NOTE | 2018-01-15 20:30 | NUR ---
LIPITOR, FLOMAX, AND LASIX GIVEN PO. PT TOLERATED WELL. MICHAEL HUNG AND RUNNING.
--- NOTE | 2018-01-15 20:47 | NUR ---
GRETCHEN GIVEN PO FOR SLEEP. PT TOLERATED WELL. Addendum: 01/16/18 at 0016 by John Rendon RN WRONG PT CHARTED ON.
--- NOTE | 2018-01-15 22:15 | NUR ---
PT LAYING IN BED WATCHING TV COMFORTABLY. NO S/S OF DISTRESS NOTED. WILL CONTINUE TO MONITOR.
[2018-01-16] VITALS: BP 126/66
[2018-01-16] MEDS: HYDRAGUARD CREAM TP SCH ×2 (00:14→13:50)
[2018-01-16] MEDS: Z-GUARD PASTE TP SCH ×2 (00:15→13:50)
--- NOTE | 2018-01-16 00:15 | NUR ---
HYDRAGUARD AND ZGAURD APPLIED DURING WOUND CARE. PT TOLERATED WELL.
--- NOTE | 2018-01-16 02:45 | NUR ---
PT SLEEPING COMFORTABLY IN BED SUPINE. NO S/S OF DISTRESS NOTED. RESPIRATIONS EVEN, UNLABORED, AND WNL. WILL CONTINUE TO MONITOR.
[2018-01-16 04:00] VITALS: BP 126/70
[2018-01-16] MEDS: MEROPENEM 1,000 MG in NACL 0.9% 100 ML IV SCH ×2 (04:07→13:00)
--- NOTE | 2018-01-16 04:07 | NUR ---
MICHAEL HUNG AND RUNNING. PT TOLERATING WELL.
--- NOTE | 2018-01-16 04:30 | NUR ---
PT HAD A BM. WOUND CARE DONE ON PT. HYDRAGUARD AND ZGUARD APPLIED AND COVERED IN OPTIFOAM. WOUND NOW HAS SEROUS BLEEDING. WILL INFORM MD AND ENDORSE TO AM SHIFT.
[2018-01-16 06:47] LABS: ANION GAP 10.9 (8-16); CARBON DIOXIDE 28.6 mmol/L (21-32); CREATININE 0.8 mg/dL (0.7-1.3); POTASSIUM 3.5 mmol/L (3.5-5.1)
[2018-01-16 06:50] LABS: PHOSPHORUS 3.6 mg/dL (2.5-4.9)
[2018-01-16 06:57] LABS: BASOPHILS # (AUTO) 0.1 K/uL (0.00-0.22); BASOPHILS % (AUTO) 0.9 % (0.0-2.0); EOSINOPHILS # (AUTO) 0.3 K/uL (0-0.4); EOSINOPHILS % (AUTO) 1.9 % (0.0-4.0); HEMATOCRIT 27.1 % (36-52); LYMPHOCYTES # (AUTO) 2.3 K/uL (2.0-11.5); LYMPHOCYTES % (AUTO) 14.2 % (20.5-51.1); MEAN CORPUSCULAR HEMOGLOBIN 35 pg (27-31); MEAN CORPUSCULAR HGB CONC 33 g/dL (33-37); MEAN CORPUSCULAR VOLUME 105.5 fL (80-94); MONOCYTES # (AUTO) 0.9 K/uL (0.8-1.0); MONOCYTES % (AUTO) 5.5 % (1.7-9.3); NEUTROPHILS # (AUTO) 12.7 K/uL (1.8-7.7); NEUTROPHILS % (AUTO) 77.5 % (42.2-75.2); PLATELET COUNT (AUTO) 355 K/uL (140-450); RED BLOOD CELL COUNT(AUTO) 2.57 MIL/uL (4.20-6.10); RED CELL DISTRIBUTION WIDTH 14.1 % (11.6-13.7); WHITE BLOOD COUNT (AUTO) 16.4 K/uL (4.8-10.8)
--- NOTE | 2018-01-16 07:05 | NUR ---
REPORT GIVEN TO AM NURSE AT BEDSIDE. PT IN STABLE CONDITION.
--- NOTE | 2018-01-16 07:06 | NUR ---
RECEIVED REPORT FROM PM NURSE AT BEDSIDE. PT LYING ON HIS BED, WATCHING TV. PT IS ON CONTACT ISOLATION FOR MDRO IN WOUND AND ECOLI. IS PARAPLEGIC, ON FALL RISK PRECAUTION. PT HAS LFT FA 20 G, IVF NS INFUSING AT 1OO ML/HR. DENIES ANY PAIN AT THIS TIME. NO SIGN OF DISTRESS NOTED. CALL LIGHT WITHIN PT REACH. UPDATED BOARD AND INTRODUCED SELF. ASKED HIM TO USE CALL LIGHT FOR ANY HELP. WILL CONTINUE TO MONITOR PT.
[2018-01-16] MEDS: NACL 0.9% 1,000 ML IV SCH (07:26)
[2018-01-16 07:49] VITALS: BP 121/77
[2018-01-16] MEDS: ZINC SULF 220 MG CAP PO SCH (09:04)
[2018-01-16] MEDS: FOLIC ACID 1 MG TAB PO SCH (09:04)
[2018-01-16] MEDS: GABAPENTIN 300 MG CAP PO SCH ×2 (09:04→14:36)
[2018-01-16] MEDS: FUROSEMIDE 20 MG TAB PO SCH (09:05)
[2018-01-16] MEDS: ECOTRIN 81 MG TABEC PO SCH (09:05)
[2018-01-16] MEDS: CYANOCOBALAMIN 100 MCG TAB PO SCH (09:05)
[2018-01-16] MEDS: ASCORBIC ACID 500 MG TAB PO SCH (09:05)
[2018-01-16] MEDS: SPIRONOLACTONE 25 MG TAB PO SCH (09:06)
[2018-01-16] MEDS: MAGNESIUM OXIDE 400 MG TAB PO SCH (09:06)
--- NOTE | 2018-01-16 09:11 | NUR ---
ADMINISTERED MEDS TO PT ORDERED. TOLERATED WELL. PT ASKING FOR TOWEL, GAVE HIM TOWEL. DENIES ANY PAIN. CALL LIGHT WITHIN PT REACH. ASKED HIM TO USE CALL LIGHT FOR HELP. WILL CONTINUE TO MONITOR PT.
--- NOTE | 2018-01-16 10:14 | NUR ---
SPOKE WITH GLORIA AT [facility]. SHE IS AWARE PATIENT IS MDRO SACRUM.
[2018-01-16] MEDS ORDERED: Hydraguard TP ×2 (10:53)
[2018-01-16] MEDS ORDERED: SPIR25TA PO (10:53)
[2018-01-16] MEDS ORDERED: ASPI-1173 PO (10:53)
[2018-01-16] MEDS ORDERED: FURO20TA8 PO (10:53)
[2018-01-16] MEDS ORDERED: ATOR20TA40 PO (10:53)
--- NOTE | 2018-01-16 12:45 | NUR ---
SPOKE WITH GLORIA FROM [facility] AND FAXED THE NEW ORDER FOR IV MERREM Q 8 HOURS. RECEIVED A CALL BACK FROM COLLETTE AT [facility]. THEY ARE ABLE TO TAKE THE PATIENT WITH MERREM. HE WILL GO TO ROOM 100A UNDER DR. RIVERA. EARLY TRANSPORT WAS SET UP BY [facility] FOR 3P.Reji [place] R.N.
--- NOTE | 2018-01-16 15:15 | NUR ---
[facility]. PT LEFT WITH IV ACCESS ON HIS LEFT HAND. STABLE AT TIME OF DISCHARGE. PT GIVEN DC INSTRUCTION AND PACKET. FACILITY AWARE. REPORT GIVEN TO THE NURSE COAZIAN AT FACILITY .
== END 2018-01-16 15:15 | DRG 871 ==
LOC: MED 19:22 → MTU 22:58 → OBSVTOIN 01-13 07:22
PROVIDERS: ADMIT General Practice; ATTEND General Practice
DX: A41.9 Sepsis, unspecified organism (principal); L89.154 Pressure ulcer of sacral region, stage 4; E43 Unspecified severe protein-calorie malnutrition; G82.20 Paraplegia, unspecified; J98.11 Atelectasis; L03.315 Cellulitis of perineum; R65.20 Severe sepsis without septic shock; E87.6 Hypokalemia; E83.42 Hypomagnesemia; D53.9 Nutritional anemia, unspecified; B96.20 Unspecified Escherichia coli [E. coli] as the cause of diseases classified elsewhere; E86.0 Dehydration; E83.51 Hypocalcemia; E78.2 Mixed hyperlipidemia; E02 Subclinical iodine-deficiency hypothyroidism; N43.3 Hydrocele, unspecified; K76.0 Fatty (change of) liver, not elsewhere classified; I73.9 Peripheral vascular disease, unspecified; E83.39 Other disorders of phosphorus metabolism; R73.9 Hyperglycemia, unspecified; F43.9 Reaction to severe stress, unspecified; L89.329 Pressure ulcer of left buttock, unspecified stage; L89.319 Pressure ulcer of right buttock, unspecified stage; Z68.30 Body mass index [BMI] 30.0-30.9, adult; Z87.891 Personal history of nicotine dependence; Z79.899 Other long term (current) drug therapy
CPT/HCPCS: 96365; 99218; 99285; G0378; 36415; 71045; 76870; 80048; 80053; 80202; 80305; 81003; 83036; 83605; 83735; 83880; 84100; 84436; 84439; 84443; 84479; 85025; 85610; 85730; 87040; 87070; 87081; 87086; 87186; 97110; 97530; J0696; J2185; J2543; J3370; J7030; J7060; Q0092

== ENCOUNTER 2022-07-05 12:59 | Inpatient (IN) | payer OTHER, MEDICAID ==
[~2022-07-05] VITALS: Ht 167.6 cm; Wt 87.5 kg
[~2022-07-05 12:59] MED LIST changes: -ACET-9525 PO; +ASPI-1856 PO; +ATOR20TA40 PO; -BENZ1LOZ93 MM; +FURO20TA8 PO; -ONDA2SOL45 IM/IVP; -PHEN-329 PO; -PIPE1SOL IV; +SPIR25TA PO; -TRAM50TA3 PO; -Therahoney Gel TP; -ZGUARD TP
[2022-07-05 13:28] VITALS: BP 152/89
[2022-07-05 13:59] VITALS: BP 143/72
[2022-07-05 14:12] LABS: BASOPHILS % (AUTO) 0.2 % (0.0-2.0); HEMATOCRIT 30.3 % (36-52); HEMOGLOBIN 9.8 g/dL (12.0-18.0); LYMPHOCYTES # (AUTO) 0.7 K/uL (2.0-11.5); LYMPHOCYTES % (AUTO) 4.4 % (20.5-51.1); MEAN CORPUSCULAR HEMOGLOBIN 28 pg (27-31); MEAN CORPUSCULAR HGB CONC 33 g/dL (33-37); MEAN CORPUSCULAR VOLUME 85.5 fL (80-94); MONOCYTES # (AUTO) 0.3 K/uL (0.8-1.0); MONOCYTES % (AUTO) 1.8 % (1.7-9.3); NEUTROPHILS # (AUTO) 15.5 K/uL (1.8-7.7); NEUTROPHILS % (AUTO) 93.6 % (42.2-75.2); PLATELET COUNT (AUTO) 227 K/uL (140-450); RED BLOOD CELL COUNT(AUTO) 3.54 MIL/uL (4.20-6.10); RED CELL DISTRIBUTION WIDTH 15.1 % (11.6-13.7); WHITE BLOOD COUNT (AUTO) 16.6 K/uL (4.8-10.8)
--- NOTE | 2022-07-05 14:32 | NUR ---
COMFORT MEASURES AND SUPPORTIVE CARE INITIATED. AWAIT PT URINE. Addendum: 07/05/22 at 1923 by [id number] PT RELUCTANT TO REMOVE CLOTHING. REMAINS IN W/C BY CHOICE. CONTINUED URGING PT TO ALLOW THOROUGH TX. BILAT PEDAL EDEMA AND POOR HYGIENE NOTED. PT STATES HE HAS HIS SISTER TO ASSIST HIM. HE STATES HE LIVES IN REAR HOME AND HIS SISTER LIVES IN FRONT HOME ON [address]. PT NOT FORTH COMING WITH INFO. RELUCTANT TO SHARE HX, POSSIBLY EMBARRASED. EMOTIONAL SUPPORT AND REASSURANCE OFFERED.
[2022-07-05 14:38] LABS: ALBUMIN 2.5 g/dL (3.4-5.0); ANION GAP 16.8 (8-16); CARBON DIOXIDE 23.7 mmol/L (21-32); CREATININE 1.9 mg/dL (0.6-1.3); POTASSIUM 3.5 mmol/L (3.5-5.1); TOTAL BILIRUBIN 0.8 mg/dL (0.0-1.0)
--- NOTE | 2022-07-05 15:04 | NUR ---
ABNORMAL LAB GLUCOSE:536 LACTIC:2.9
[2022-07-05] MEDS ORDERED: NACL 0.9% 2,000 ML IV ONE (15:10)
[2022-07-05] MEDS ORDERED: cefTRIAXone 1,000 MG VIAL ONE (15:59)
--- NOTE | 2022-07-05 16:11 | NUR ---
IV ESTABLISHED. MEDS GIVEN PER ORDER. SUPPORTIVE CARE CONTINUED. ULTRASOUND COMPLETE. CONTINUE TO ENCOURAGE PT TO PROVIDE URINE.
--- NOTE | 2022-07-05 17:40 | NUR ---
TO CT VIA [facility].
[2022-07-05] MEDS ORDERED: ONDANSETRON 4 MG/2 ML VIAL IVP PRN (17:55)
[2022-07-05] MEDS ORDERED: POTASSIUM CHLORIDE 10 MEQ TABER PO PRN (17:55)
[2022-07-05] MEDS ORDERED: VANCOMYCIN PER PHARMACY MC PRN (17:55)
[2022-07-05] MEDS ORDERED: LORazepam 1 MG TAB PO PRN (17:55)
[2022-07-05] MEDS ORDERED: DEXTROSE 50% 50 ML SYR IVP PRN (17:55)
[2022-07-05] MEDS ORDERED: ACETAMINOPHEN 325 MG TAB PO PRN (17:55)
[2022-07-05] MEDS ORDERED: MAGNESIUM OXIDE 400 MG TAB PO PRN (17:55)
--- NOTE | 2022-07-05 18:00 | NUR ---
CONVINCED PT TO REMOVE GREGORY TO ALLOW FOR CT OF LLE. AFTER SIGNIFICANT ENCOURAGEMENT, PT ALLOWS FOR REMOVAL OF GREGORY, BUT CONTINUES TO WEAR UNDERWEAR. BILAT UE GEN EDEMA NOTED. POOR HYGIENE W/ ODOR NOTED. PENDING CT. PT GOT INTO ARGUEMENT W/ NEIGHBORING PT BECAUSE PT WAS LISTENING TO HIS MUSIC ON HIS CELL PHONE LOUDLY. ENCOURAGE PT TO BE CONSIDERATE OF OTHER HEALING PATIENTS. PT AGREES TO LOWER HIS MUSIC.
--- NOTE | 2022-07-05 18:22 | NUR ---
REPEAT LACTIC DRAWN,. PT CONTINUALLY REMINDED TO KEEP ARM STRAIGHT. PT INSISTED IV BE ESTABLISHED AT LEFT AC.
[2022-07-05] MEDS ORDERED: VANCOMYCIN 1,000 MG in NACL 0.9% 250 ML IV SCH (18:30)
--- NOTE | 2022-07-05 18:35 | NUR ---
REPEAT LACTIC: 3.0 REPORTED TO NOC ERMD
--- NOTE | 2022-07-05 19:30 | NUR ---
Patient resting in bed, A/Ox4, chest rise and fll symmetrical, no c/o pain or s/s of distress, on monitor.
[2022-07-05] MEDS: INSULIN LANTUS 100 UNITS/ML 10 ML VIAL SUBQ SCH (20:13)
[2022-07-05] MEDS: NACL 0.9% 1,000 ML IV SCH (20:16)
[2022-07-05] MEDS: BLOOD GLUCOSE MONITORING 1 DEV DEV FS SCH (20:22)
[2022-07-05] MEDS ORDERED: VANCOMYCIN 1,000 MG VIAL ONE (20:31)
[2022-07-05] MEDS: INSULIN LISPRO SLIDING SCALE 100 UNITS/ML VIAL SUBQ PRN (20:31)
--- NOTE | 2022-07-05 20:32 | NUR ---
Due to giving Lantus 15 units SQ, that was due during dayshift, humalog dose held due to possible interaction.
--- NOTE | 2022-07-05 21:21 | NUR ---
Patient resting in bed, A/Ox4, chest rise and fll symmetrical, no c/o pain or s/s of distress, on monitor.
--- NOTE | 2022-07-05 21:21 | NUR ---
Patient will be admitted to care of Dr. Nelson. Admited to telemetry. Will go to room 106A. Belongings list completed. Report to Carolyn SZYMANSKI. Carolyn SZYMANSKI verbalized understanding of report, no further questions.
[2022-07-05 21:44] VITALS: BP 100/63
--- NOTE | 2022-07-05 21:44 | NUR ---
RECEIVED PT EDMUND / CHRISS FROM ER ,TRANSFER TO BED BY MANUALLY LIFT , IV SITE INTACT AND PATENT NID - O2 SAT WNL , PT SAID HE IS FEELS COLDS , WILL RE CHECK THE TEMP FURTHER ADMISSION ASSESSMENT WILL BE DONE , DENIES PAIN AT THIS TIME , ON TELE MONITOR - SR PUT PT ON FALL PREVENTION MEASURES , CALL LIGHT WITHIN REACH , WILL PUT ON CONDOM . WILL CONT. TO MONITOR . Addendum: 07/06/22 at 0819 by Carolyn Landry RN AT 2144 T 98.8 BUT W/ CHILLS - WILL MONITOR THE TEMP .
--- NOTE | 2022-07-05 22:30 | NUR ---
TEMP RE CHECK 100.3 - WILL MEDICATE , HAS WATERY BM - WILL MONITOR - BP WNL . AAOX4
--- NOTE | 2022-07-05 23:00 | NUR ---
TEMP RE CHECK 100.0 F - WILL CONT. TSB .
[2022-07-05] MEDS ORDERED: PIPERACILLIN/TAZOBACTAM 4.5 GM VIAL IV ONE (23:44)
[2022-07-05] MEDS: PIPERACILLIN/TAZOBACTAM 4.5 GM in DEXTROSE 5% 100 ML IV SCH (23:53)
[2022-07-06] VITALS: BP 100/60
--- NOTE | 2022-07-06 | NUR ---
TEMP RE CHECK 98 .8 F - WILL CONT. TO MONITOR
--- NOTE | 2022-07-06 02:00 | NUR ---
TEMP RE CHECK 98.7 F - WILL CONT TO MONITOR - SR
[2022-07-06 04:00] VITALS: BP 111/60
--- NOTE | 2022-07-06 04:00 | NUR ---
TEMP RE CHECK 98 .8 - WILL CONT. TO MONITOR
[2022-07-06] MEDS: HYDROcodone/APAP 5/325 MG 1 TAB TAB PO PRN ×2 (04:47→13:43)
[2022-07-06] MEDS: NACL 0.9% 1,000 ML IV SCH ×4 (04:53→18:57)
--- NOTE | 2022-07-06 04:53 | NUR ---
has chills - temp rec heck - 100.0 f - will do tsb . Addendum: 07/06/22 at 0827 by Carolyn Landry RN LAILA GIVEN - PER CHARGE NURSE SAID LET CHECK THE TEMP AGAIN AFTER 1 HOUR IF STILL W/ FEVER GIVE THE TYLENOL - WILL CONT. TO MONITOR
[2022-07-06] MEDS ORDERED: PIPERACILLIN/TAZOBACTAM 4.5 GM VIAL IV ONE (05:58)
--- NOTE | 2022-07-06 06:00 | NUR ---
PT'S TEMP 98..7F - WILL CONT. TO MONITOR . CALL LIGHT WITHIN REACH , AAOX4
[2022-07-06] MEDS: BLOOD GLUCOSE MONITORING 1 DEV DEV FS SCH ×4 (06:47→21:34)
[2022-07-06] MEDS: INSULIN LISPRO SLIDING SCALE 100 UNITS/ML VIAL SUBQ PRN (06:48)
[2022-07-06 06:51] LABS: ANION GAP 13.7 (8-16); CARBON DIOXIDE 24.1 mmol/L (21-32); CREATININE 1.3 mg/dL (0.6-1.3)
[2022-07-06] MEDS: PIPERACILLIN/TAZOBACTAM 4.5 GM in DEXTROSE 5% 100 ML IV SCH (06:54)
--- NOTE | 2022-07-06 06:55 | NUR ---
HAS WATERY DIARRHEA , BP RE CHECK - 88/56 , AAOX4 , T 100.0 , STILL CONT. TSB , AND ENCOURAGE ORAL FLUID INTAKE - LOW SERUM K + - REFER TO DR. ESCOBAR - STAT . Addendum: 07/06/22 at 0803 by Carolyn Landry RN AT 710 - DR. ESCOBAR RESPONDED MADE T.O AND WILL CARRY OUT . Addendum: 07/06/22 at 0804 by Carolyn Landry RN 714 - CAN'T REACH OUT THE PHARMACIST - INFORM CAFE ASSOCIATE - BOLUS ADMINISTERING - HOUSE SUP AGREE W/ IT . Addendum: 07/06/22 at 0808 by Carolyn Landry RN AT 0740 - ENDORSED FOR CONT. OF CARE - ENDORSED TO SCOTT SZYMANSKI I STOPPED THE ZOSYN BECAUSE NSS 1 L BOLUS STAT IS ONGOING , I ENDORSED TO STEPHON CHAVEZ AFTER THE BOLUS SHE HAVE TO CALL OUR PHARMACIST IF IT IS OK TO RE ADMINISTER THE REMAINING ZOSYN TIV SINCE I DILUTED IT AT 0700 - STEPHON CHAVEZ VERBALIZED UNDERSTANDING . STEPHON CHAVEZ SAW THE COPY OF DR. SHAWN BUSBY ABOUT MIDOCRINE , AND K DUR OF 60 MEQ .
[2022-07-06 06:58] LABS: POTASSIUM 2.8 mmol/L (3.5-5.1)
[2022-07-06 07:16] LABS: BASOPHILS # (AUTO) 0.1 K/uL (0.00-0.22); BASOPHILS % (AUTO) 0.4 % (0.0-2.0); HEMATOCRIT 28.9 % (36-52); HEMOGLOBIN 9.7 g/dL (12.0-18.0); LYMPHOCYTES # (AUTO) 1.1 K/uL (2.0-11.5); LYMPHOCYTES % (AUTO) 5.7 % (20.5-51.1); MEAN CORPUSCULAR HEMOGLOBIN 28 pg (27-31); MEAN CORPUSCULAR HGB CONC 33 g/dL (33-37); MEAN CORPUSCULAR VOLUME 84.5 fL (80-94); MONOCYTES # (AUTO) 0.2 K/uL (0.8-1.0); MONOCYTES % (AUTO) 1.3 % (1.7-9.3); NEUTROPHILS # (AUTO) 17.1 K/uL (1.8-7.7); NEUTROPHILS % (AUTO) 92.6 % (42.2-75.2); PLATELET COUNT (AUTO) 184 K/uL (140-450); RED BLOOD CELL COUNT(AUTO) 3.42 MIL/uL (4.20-6.10); RED CELL DISTRIBUTION WIDTH 14.9 % (11.6-13.7); WHITE BLOOD COUNT (AUTO) 18.5 K/uL (4.8-10.8)
--- NOTE | 2022-07-06 07:30 | NUR ---
RECEIVED BEDSIDE REPORT FROM NIGHTSHIFT NURSE. PT IS AWAKE, RESTING IN BED. NO PHYSICAL SIGNS OF DISTRESS, NO REPORTS OF PAIN. PT HAD LOW BP 0655. MD MADE AWARE. NEW MED ORDERS MADE. NS BOLUS STARTED BY NIGHTSHIFT NURSE, WILL CONTINUE ONTO DAYSHIFT. MIDODRINE ALSO ORDERED AND ADMINISTERED. PT IV TO LEFT AC NOT WORKING, HAD TO DC. STARTED NEW IV TO RIGHT AC 20G. PT BP NOW 119/66(87) WILL CONTINUE TO MONITOR AND CONTINUE WITH CARE.
[2022-07-06 08:00] VITALS: BP 119/66
[2022-07-06] MEDS ORDERED: POTASSIUM CHLORIDE 10 MEQ TABER PO SCH ×2 (08:05→10:30)
[2022-07-06] MEDS ORDERED: MIDODRINE 5 MG TAB PO SCH (08:07)
[2022-07-06] MEDS ORDERED: ALBUMIN HUMAN 25% 100 ML IV SCH (08:11)
[2022-07-06] MEDS: DOCUSATE SODIUM 100 MG GELCAP PO SCH (09:29)
[2022-07-06] MEDS: INSULIN LANTUS 100 UNITS/ML 10 ML VIAL SUBQ SCH (09:39)
[2022-07-06 12:00] VITALS: BP 123/64
[2022-07-06] MEDS: VANCOMYCIN 750 MG in NACL 0.9% 250 ML IV SCH (15:55)
[2022-07-06] MEDS: MIDODRINE 5 MG TAB PO SCH ×2 (15:58→17:52)
[2022-07-06 16:00] VITALS: BP 130/58
--- NOTE | 2022-07-06 18:40 | NUR ---
AIMEE AT BEDSIDE W/ PT. ASSESSED PT WOUND ON BACKSIDE. STARTED PT ON ZOSYN.
--- NOTE | 2022-07-06 19:33 | NUR ---
ENDORSED TO NIGHTSHIFT NURSE FOR CONTINUITY OF CARE. PT RESTING IN BED, NO SIGNS OF DISTRESS, NO REPORTS OF PAIN OR DISCOMFORT.
[2022-07-06 20:00] VITALS: BP 115/66
[2022-07-06] MEDS ORDERED: PIPERACILLIN/TAZOBACTAM 3.375 GM VIAL IV ONE (21:08)
[2022-07-06] MEDS: PIPERACILLIN/TAZOBACTAM 3.375 GM in DEXTROSE 5% 50 ML IV SCH (21:36)
[2022-07-07] VITALS: BP 119/67
[2022-07-07] MEDS: VANCOMYCIN 750 MG in NACL 0.9% 250 ML IV SCH ×3 (00:36→23:31)
[2022-07-07] MEDS: MORPHINE SULFATE 2 MG/ML SYR IVP PRN ×3 (00:48→23:38)
[2022-07-07 04:00] VITALS: BP 112/64
[2022-07-07] MEDS ORDERED: PIPERACILLIN/TAZOBACTAM 3.375 GM VIAL IV ONE (05:20)
[2022-07-07] MEDS: PIPERACILLIN/TAZOBACTAM 3.375 GM in DEXTROSE 5% 50 ML IV SCH ×3 (05:36→20:34)
[2022-07-07] MEDS: BLOOD GLUCOSE MONITORING 1 DEV DEV FS SCH ×4 (06:48→20:29)
[2022-07-07 06:57] LABS: BASOPHILS # (AUTO) 0.1 K/uL (0.00-0.22); BASOPHILS % (AUTO) 0.9 % (0.0-2.0); EOSINOPHILS % (AUTO) 0.3 % (0.0-4.0); HEMATOCRIT 26.8 % (36-52); LYMPHOCYTES # (AUTO) 1.5 K/uL (2.0-11.5); LYMPHOCYTES % (AUTO) 12.6 % (20.5-51.1); MEAN CORPUSCULAR HEMOGLOBIN 28 pg (27-31); MEAN CORPUSCULAR HGB CONC 33 g/dL (33-37); MEAN CORPUSCULAR VOLUME 84.5 fL (80-94); MONOCYTES # (AUTO) 0.4 K/uL (0.8-1.0); MONOCYTES % (AUTO) 3.1 % (1.7-9.3); NEUTROPHILS # (AUTO) 9.9 K/uL (1.8-7.7); NEUTROPHILS % (AUTO) 83.1 % (42.2-75.2); PLATELET COUNT (AUTO) 155 K/uL (140-450); RED BLOOD CELL COUNT(AUTO) 3.17 MIL/uL (4.20-6.10); RED CELL DISTRIBUTION WIDTH 15.1 % (11.6-13.7); WHITE BLOOD COUNT (AUTO) 11.9 K/uL (4.8-10.8)
--- NOTE | 2022-07-07 07:00 | NUR ---
RECEIVED BEDSIDE REPORT FROM NIGHTSHIFT NURSE. PT ASLEEP IN BED, WOKE TO NAME AND TOUCH. NO SIGNS OF DISTRESS, NO REPORTS OF PAIN OR DISCOMFORT. REORIENTED PT TO CALL LIGHT. NO FURTHER NEEDS ARE TO BE MET AT THIS TIME, WILL CONTINUE WITH CARE.
[2022-07-07 07:06] LABS: ANION GAP 12.1 (8-16); CARBON DIOXIDE 22.3 mmol/L (21-32); POTASSIUM 3.4 mmol/L (3.5-5.1)
[2022-07-07] MEDS: NACL 0.9% 1,000 ML IV SCH (07:25)
[2022-07-07 08:00] VITALS: BP 115/67
--- NOTE | 2022-07-07 09:05 | NUR ---
PATIENT HAS BEEN SCREENED AND CATEGORIZED HIGH NUTRITION RISK. PATIENT WILL BE SEEN WITHIN 1-2 DAYS OF ADMISSION. FNS CONSULT/REFERRAL RECEIVED FOR WOUNDS/PRESSURE ULCER 07/07/22. 07/06/22-07/07/[address]
[2022-07-07] MEDS: DOCUSATE SODIUM 100 MG GELCAP PO SCH (09:12)
[2022-07-07] MEDS: MIDODRINE 5 MG TAB PO SCH ×3 (09:12→16:43)
[2022-07-07] MEDS: INSULIN LANTUS 100 UNITS/ML 10 ML VIAL SUBQ SCH (09:51)
[2022-07-07 12:00] VITALS: BP 108/61
--- NOTE | 2022-07-07 14:29 | NUR ---
07/07/22 RD INITIAL ASSESSMENT COMPLETED PLEASE REFER TO NUTRITION ASSESSMENT UNDER CARE ACTIVITY FOR ESTIMATED NUTRITIONAL NEEDS. 1. CONTINUE CCHO DIET TOLERATED 2. ADD PROSOURCE BID FOR WOUNDS WHICH WILL PROVIDE 120KCALS AND 30 GRAMS OF PROTEIN. 3. RD TO FOLLOW-UP 3-5 DAYS, MODERATE RISK DANISHA GARG RD
[2022-07-07] MEDS: INSULIN LISPRO SLIDING SCALE 100 UNITS/ML VIAL SUBQ PRN (15:40)
[2022-07-07 16:00] VITALS: BP 111/66
[2022-07-07 16:44] LABS: APPEARANCE,URINE CLEAR (CLEAR); BILIRUBIN,URINE NEGATIVE (NEGATIVE); BLOOD, URINE 3+ (NEGATIVE); COLOR,URINE YELLOW (YELLOW); LEUKOCYTE ESTERASE ,URINE NEGATIVE (NEGATIVE); NITRITE, URINE NEGATIVE (NEGATIVE); PH,URINE 5.5 (5.0-9.0); UGLUCOSE NEGATIVE (NEGATIVE)
[2022-07-07 16:58] LABS: RBC,URINE 0-5 /HPF (0-5)
--- NOTE | 2022-07-07 18:40 | NUR ---
PT RESTING IN BED, NO SIGNS OF DISTRESS, NO REPORTS OF PAIN OR DISCOMFORT. NO FURTHER NEEDS ARE TO BE MET AT THIS TIME. WILL ENDORSE TO NIGHTSHIFT NURSE.
[2022-07-07 19:34] LABS: URINE TOTAL PROTEIN 315.2 mg/dL (0-12)
[2022-07-07 20:00] VITALS: BP 117/60
--- NOTE | 2022-07-07 20:29 | NUR ---
BLOOD SUGAR CHECKED = 147. NO SLIDING SCALE COVERAGE. NO INSULIN NEEDED.
--- NOTE | 2022-07-07 23:16 | NUR ---
VANCO TROUGH RESULT 16.3, REPORTED TO PHARMACIST. PHARMACIST STATED TO GIVE VANCOMYCIN 750MG IV ORDER.
[2022-07-08] VITALS: BP 125/72
[2022-07-08 04:00] VITALS: BP 117/70
[2022-07-08] MEDS: PIPERACILLIN/TAZOBACTAM 3.375 GM in DEXTROSE 5% 50 ML IV SCH ×3 (05:44→21:16)
[2022-07-08 06:46] LABS: HEMATOCRIT 26.2 % (36-52); HEMOGLOBIN 8.8 g/dL (12.0-18.0); MEAN CORPUSCULAR HEMOGLOBIN 29 pg (27-31); MEAN CORPUSCULAR HGB CONC 34 g/dL (33-37); PLATELET COUNT (AUTO) 148 K/uL (140-450); RED BLOOD CELL COUNT(AUTO) 3.09 MIL/uL (4.20-6.10); RED CELL DISTRIBUTION WIDTH 15.2 % (11.6-13.7); WHITE BLOOD COUNT (AUTO) 9.3 K/uL (4.8-10.8)
[2022-07-08] MEDS: BLOOD GLUCOSE MONITORING 1 DEV DEV FS SCH ×4 (06:51→21:15)
[2022-07-08] MEDS: INSULIN LISPRO SLIDING SCALE 100 UNITS/ML VIAL SUBQ PRN ×4 (06:54→21:26)
[2022-07-08 07:04] LABS: ANION GAP 11.9 (8-16); CARBON DIOXIDE 22.8 mmol/L (21-32); CREATININE 0.9 mg/dL (0.6-1.3); POTASSIUM 3.7 mmol/L (3.5-5.1)
--- NOTE | 2022-07-08 07:05 | NUR ---
RECEIVED REPORT FROM NIGHT NURSE JUSTIN FOR CONTINUITY OF CARE. ASSESSMENT DONE. ALERT AND ORIENTED X 4. RESP. EVEN AND UNLABORED. IVF INFUSING WELL. NO C/O PAIN OR DISCOMFORT. CALL LIGHT KEPT WITHIN REACH. PT WILL MONITOR CLOSELY.
[2022-07-08 07:29] LABS: LYMPHOCYTES % (MANUAL) 9 % (20-46); MONOCYTES % (MANUAL) 5 % (5-12)
[2022-07-08 08:00] VITALS: BP 114/60
[2022-07-08] MEDS: DOCUSATE SODIUM 100 MG GELCAP PO SCH (09:00)
[2022-07-08] MEDS: INSULIN LANTUS 100 UNITS/ML 10 ML VIAL SUBQ SCH (09:50)
--- NOTE | 2022-07-08 09:54 | NUR ---
SCHEDULED MEDICATIONS GIVEN. TOLERATED WELL.
[2022-07-08] MEDS: MIDODRINE 5 MG TAB PO SCH ×3 (09:58→18:06)
[2022-07-08] MEDS: VANCOMYCIN 750 MG in NACL 0.9% 250 ML IV SCH ×2 (11:28→23:38)
--- NOTE | 2022-07-08 11:28 | NUR ---
PT WAS GIVE IVPB VANCOCIN NOW, PT IS LYING ON THE BED WITH NO DISTRESS NOTED.
[2022-07-08 12:00] VITALS: BP 114/68
--- NOTE | 2022-07-08 12:15 | NUR ---
BS CHECKED 189. INSULIN WAS GIVEN PER SLIDING SCALE.
--- NOTE | 2022-07-08 14:15 | NUR ---
ZOSYN IV WAS GIVEN HARSHA SZYMANSKI. TOLERATED WELL.
--- NOTE | 2022-07-08 14:20 | NUR ---
NOTED PT NO EPISODE OF DIARRHEA. DR. ESCOBAR NOTIFIED WITH NEW ORDER, DC C-DIFF TOXINS. ORDER NOTED AND CARRIED OUT.
[2022-07-08 16:00] VITALS: BP_SYST 112; BP_SYST 121; BP_DIAS 64
--- NOTE | 2022-07-08 17:25 | NUR ---
BS CHECKED 166. INSULIN WAS GIVEN PER SLIDING SCALE.
[2022-07-08] MEDS: HYDROcodone/APAP 5/325 MG 1 TAB TAB PO PRN (18:08)
--- NOTE | 2022-07-08 19:20 | NUR ---
BEDSIDE REPORT GIVEN TO NIGHT NURSE JUSTIN FOR CONTINUITY OF CARE. REMAINS STABLE.
[2022-07-08 20:00] VITALS: BP 114/64
[2022-07-09] VITALS (7 sets, daily range): BP systolic 115–142; BP diastolic 58–76
[2022-07-09] MEDS: PIPERACILLIN/TAZOBACTAM 3.375 GM in DEXTROSE 5% 50 ML IV SCH ×3 (05:08→21:11)
[2022-07-09] MEDS: BLOOD GLUCOSE MONITORING 1 DEV DEV FS SCH ×4 (06:38→21:00)
[2022-07-09 07:20] LABS: BASOPHILS # (AUTO) 0.1 K/uL (0.00-0.22); BASOPHILS % (AUTO) 0.8 % (0.0-2.0); EOSINOPHILS # (AUTO) 0.3 K/uL (0-0.4); EOSINOPHILS % (AUTO) 3.1 % (0.0-4.0); HEMATOCRIT 26.6 % (36-52); HEMOGLOBIN 8.8 g/dL (12.0-18.0); LYMPHOCYTES # (AUTO) 1.1 K/uL (2.0-11.5); LYMPHOCYTES % (AUTO) 12.7 % (20.5-51.1); MEAN CORPUSCULAR HEMOGLOBIN 28 pg (27-31); MEAN CORPUSCULAR HGB CONC 33 g/dL (33-37); MEAN CORPUSCULAR VOLUME 85.8 fL (80-94); MONOCYTES # (AUTO) 0.4 K/uL (0.8-1.0); MONOCYTES % (AUTO) 4.9 % (1.7-9.3); NEUTROPHILS # (AUTO) 7.1 K/uL (1.8-7.7); NEUTROPHILS % (AUTO) 78.5 % (42.2-75.2); PLATELET COUNT (AUTO) 163 K/uL (140-450); RED CELL DISTRIBUTION WIDTH 15.4 % (11.6-13.7)
[2022-07-09 07:56] LABS: ANION GAP 9.7 (8-16); CREATININE 0.8 mg/dL (0.6-1.3); POTASSIUM 3.7 mmol/L (3.5-5.1)
--- NOTE | 2022-07-09 08:37 | NUR ---
THE PATIENT COMPLAINT OF PULLING PAIN IN LOWER EXTREMITIES THAT COMES AND GOES. IT IS A 9/10 WHEN IT COMES. PATIENT REQUEST TO HAVE PAIN MEDICATION.
[2022-07-09] MEDS: DOCUSATE SODIUM 100 MG GELCAP PO SCH (08:55)
[2022-07-09] MEDS: HYDROcodone/APAP 5/325 MG 1 TAB TAB PO PRN ×2 (08:56→22:24)
[2022-07-09] MEDS: MIDODRINE 5 MG TAB PO SCH ×3 (09:00→17:00)
[2022-07-09] MEDS: INSULIN LANTUS 100 UNITS/ML 10 ML VIAL SUBQ SCH (09:04)
[2022-07-09] MEDS: VANCOMYCIN 750 MG in NACL 0.9% 250 ML IV SCH ×2 (12:29→23:00)
[2022-07-09] MEDS: INSULIN LISPRO SLIDING SCALE 100 UNITS/ML VIAL SUBQ PRN ×2 (12:33→22:27)
--- NOTE | 2022-07-09 14:58 | NUR ---
FNS CONSULT FOR WOUNDS RECEIVED ON 07/09/22: ALREADY BEEN CONSULTED ON 07/07/22 AND PATIENT DECLINED DIABETES EDUCATION AT THAT TIME. RD WILL TRY TO OFFER DIABETES EDUCATION TO PATIENT TODAY 07/09/22
--- NOTE | 2022-07-09 15:24 | NUR ---
RD PROVIDED DIABETES EDUCATION AND HANDOUTS TO PATIENT ON FOOD LABEL READING, CARBOHYDRATE COUNTING AND LIST OF FOODS AND PATIENT UNDERSTOOD AND WILL REACH OUT IF HE HAS ANY OTHER QUESTIONS 07/09/22.
--- NOTE | 2022-07-09 20:00 | NUR ---
Received patient from previous shift, is alert and oriented x3, voiced no c/o at this time, iv heplock, continent with urinal. Vital sign is stable.
--- NOTE | 2022-07-09 22:30 | NUR ---
c/o pain at lower extremities, Erie po given. Patient tolerated well.
[2022-07-10] VITALS: BP 142/67
[2022-07-10 04:00] VITALS: BP 128/65
[2022-07-10] MEDS: PIPERACILLIN/TAZOBACTAM 3.375 GM in DEXTROSE 5% 50 ML IV SCH ×3 (05:00→22:15)
[2022-07-10] MEDS: HYDROcodone/APAP 5/325 MG 1 TAB TAB PO PRN ×2 (06:24→16:48)
[2022-07-10 06:56] LABS: BASOPHILS # (AUTO) 0.1 K/uL (0.00-0.22); BASOPHILS % (AUTO) 0.8 % (0.0-2.0); EOSINOPHILS # (AUTO) 0.3 K/uL (0-0.4); EOSINOPHILS % (AUTO) 2.8 % (0.0-4.0); HEMATOCRIT 28.5 % (36-52); HEMOGLOBIN 9.4 g/dL (12.0-18.0); LYMPHOCYTES # (AUTO) 1.1 K/uL (2.0-11.5); LYMPHOCYTES % (AUTO) 10.6 % (20.5-51.1); MEAN CORPUSCULAR HEMOGLOBIN 28 pg (27-31); MEAN CORPUSCULAR HGB CONC 33 g/dL (33-37); MONOCYTES # (AUTO) 0.6 K/uL (0.8-1.0); MONOCYTES % (AUTO) 5.7 % (1.7-9.3); NEUTROPHILS # (AUTO) 8.3 K/uL (1.8-7.7); NEUTROPHILS % (AUTO) 80.1 % (42.2-75.2); PLATELET COUNT (AUTO) 203 K/uL (140-450); RED BLOOD CELL COUNT(AUTO) 3.31 MIL/uL (4.20-6.10); RED CELL DISTRIBUTION WIDTH 15.5 % (11.6-13.7); WHITE BLOOD COUNT (AUTO) 10.4 K/uL (4.8-10.8)
[2022-07-10 07:04] LABS: ANION GAP 13.2 (8-16); CREATININE 0.8 mg/dL (0.6-1.3); POTASSIUM 4.2 mmol/L (3.5-5.1)
[2022-07-10] MEDS: BLOOD GLUCOSE MONITORING 1 DEV DEV FS SCH ×4 (07:30→22:10)
[2022-07-10 08:00] VITALS: BP 128/62
[2022-07-10] MEDS: DOCUSATE SODIUM 100 MG GELCAP PO SCH (08:42)
[2022-07-10] MEDS: MIDODRINE 5 MG TAB PO SCH ×3 (08:43→17:00)
[2022-07-10] MEDS: INSULIN LANTUS 100 UNITS/ML 10 ML VIAL SUBQ SCH (08:46)
[2022-07-10] MEDS: VANCOMYCIN 750 MG in NACL 0.9% 250 ML IV SCH ×2 (10:20→23:59)
[2022-07-10] MEDS: INSULIN LISPRO SLIDING SCALE 100 UNITS/ML VIAL SUBQ PRN ×3 (11:37→22:14)
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
[2022-07-10] MEDS ORDERED: SKINTEGRITY HYDROGEL TP PRN (12:00)
[2022-07-10] MEDS: Z-GUARD PASTE TP SCH (12:27)
[2022-07-10] MEDS: NON ADHERENT DRESSING TP SCH (12:27)
--- NOTE | 2022-07-10 15:04 | NUR ---
FNS CONSULT RECEIVED FOR WOUNDS/PRESSURE ULCER 07/10/22. RD WILL FOLLOW UP IN 1-[address] PROVIDED DIABETES EDUCATION AND HANDOUTS TO PATIENT ON FOOD LABEL READING, CARBOHYDRATE COUNTING AND LIST OF FOODS AND PATIENT UNDERSTOOD AND WILL REACH OUT IF HE HAS ANY OTHER QUESTIONS 07/10/22.
[2022-07-10 16:00] VITALS: BP 125/64
--- NOTE | 2022-07-10 17:27 | NUR ---
Pt seen by wound care nurse today. Aginate and hydrogel applied to wound covered by optifoam. Pt c/o 09/19 pain reduced by Huddy to tolerable level. 1200 and 1700 Midodrine held due to SBP being around 130. Condom catheter placed. Pt repositioned from side to side.
[2022-07-10 20:00] VITALS: BP 142/77
--- NOTE | 2022-07-10 22:10 | NUR ---
BLOOD SUGAR CHECKED = 162 = 2 UNITS INSULIN HUMALOG ADMINISTERED.
[2022-07-11] MEDS: Z-GUARD PASTE TP SCH ×2 (01:00→13:00)
[2022-07-11] MEDS: HYDROcodone/APAP 5/325 MG 1 TAB TAB PO PRN (03:13)
--- NOTE | 2022-07-11 03:13 | NUR ---
PT COMPLAINTS OF LEFT LEG PAIN 07/20, PAIN MEDICATION NORCO ADMINISTERED ORDER.
--- NOTE | 2022-07-11 03:43 | NUR ---
REASSESSMENT OF PAIN, PT IS ASLEEP.
[2022-07-11 04:00] VITALS: BP 116/66
[2022-07-11] MEDS: PIPERACILLIN/TAZOBACTAM 3.375 GM in DEXTROSE 5% 50 ML IV SCH (05:48)
[2022-07-11] MEDS: BLOOD GLUCOSE MONITORING 1 DEV DEV FS SCH ×2 (06:41→12:06)
--- NOTE | 2022-07-11 06:41 | NUR ---
BLOOD SUGAR CHECKED = 121, NO SLIDING SCALE COVERAGE.
--- NOTE | 2022-07-11 07:05 | NUR ---
RECEIVED PT FROM SPANISH INSTRUCTOR NURSE FOR CONTINUITY OF CARE. PT IS IN BED AWAKE. AOX4. ABLE TO VERBALIZE NEEDS. RESPIRATIONS EVEN AND UNLABORED ON RA. IV ON L FA 22G, SL. SKIN WARM AND DRY. CALL LIGHT WITHIN REACH. ALL SAFETY PRECAUTIONS IN PLACE.
[2022-07-11 08:00] VITALS: BP 132/62
[2022-07-11] MEDS: MIDODRINE 5 MG TAB PO SCH ×2 (09:00→13:00)
[2022-07-11] MEDS ORDERED: SKINTEGRITY HYDROGEL TP SCH (09:00)
[2022-07-11] MEDS: DOCUSATE SODIUM 100 MG GELCAP PO SCH (09:24)
[2022-07-11] MEDS: INSULIN LANTUS 100 UNITS/ML 10 ML VIAL SUBQ SCH (09:30)
[2022-07-11] MEDS: VANCOMYCIN 750 MG in NACL 0.9% 250 ML IV SCH (11:00)
--- NOTE | 2022-07-11 11:19 | NUR ---
WENT IN TO ROOM TO CHANGE SCHEDULED DRESSING ON COCCYX. PT REFUSED. STATES HES WAITING TO TALK TO SOMEONE AND FOR NURSE TO COME BACK LATER. PT TO CALL IF HES READY BEFORE HAND. CALL LIGHT WITHIN REACH.
--- NOTE | 2022-07-11 12:06 | NUR ---
RAJI EDMONDSON WENT IN ROOM TO CHECK BLOOD SUGAR. PT REFUSED STATES "I DONT NEED THAT I AM GOING HOME ALREADY" PT REFUSING. PT ASKING FOR IV ACCESS TO BE REMOVED. PROVIDED PT TEACHING REGARDING RISKS/BENEFITS. PT AGREED TO GET IV ABX. STATES "OKAY BUT I AM ONLY GETTING ONE ANTIBIOTIC NOT TWO."
[2022-07-11] MEDS: NON ADHERENT DRESSING TP SCH (13:00)
--- NOTE | 2022-07-11 13:45 | NUR ---
PROVIDED WOUND CARE. ALL WOUNDS CLEANSED AND DRESSINGS CHANGED. IV LEAKING. STOPPED INFUSION. PT DISCONNECTED FROM IV PUMP.
--- NOTE | 2022-07-11 14:18 | NUR ---
WENT IN ROOM. PT FULLY DRESSED STATES "I AM GOING HOME" REACHING OVER BED TO HIS WHEELCHAIR GATHERING BELONGINGS AND PLACING ON CHAIR. INFORMED PT IV NEEDS TO BE STARTED NOW FOR HIM TO RECEIVE HIS ABX. PT STATES "NAH I DONT NEED THAT IM NOT WAITING 2 HOURS FOR THAT I NEED TO LEAVE." PROVIDED PT TEACHING OF RISKS/BENEFITS OF NOT RECEIVING HIS ABX. PT VERBALIZED UNDERSTANDING, REFUSED AGAIN.
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
[2022-07-11] MEDS ORDERED: CEPH-588 PO (14:47)
[2022-07-11] MEDS ORDERED: SULF-59 PO (14:47)
--- NOTE | 2022-07-11 14:52 | NUR ---
07/11/22 RD FOLLOW UP COMPLETED PLEASE REFER TO NUTRITION ASSESSMENT UNDER CARE ACTIVITY FOR ESTIMATED NUTRITIONAL NEEDS. 1. CONTINUE CCHO DIET TOLERATED 2. CONTINUE PROSOURCE BID FOR WOUNDS WHICH WILL PROVIDE 120KCALS AND 30 GRAMS OF PROTEIN. 3. RD TO FOLLOW-UP 3-5 DAYS, MODERATE RISK DANISHA GARG RD
--- NOTE | 2022-07-11 15:04 | NUR ---
RECEIVED ORDER FOR PATIENT TO GET HOME HEALTH FOR WOUND CARE. FAXED ALL PAPERWORK TO [facility]. WAITING FOR CONFIRMATION AND WILL FOLLOW UP WITH UPDATES. Addendum: 07/12/22 at 0906 by SANIA HATFIELD CM SPOKE WITH BRANDT FROM [facility] WHO IS ACCEPTING PATIENT AND WILL BE CONTACTING PATIENT DIRECTLY. SHE ALSO WAS REQUESTING TO SPEAK TO THE WOUND CARE NURSE WHO SHE WAS TRANSFERRED TO HER EXTENSION. Addendum: 07/12/22 at 1141 by SANIA HATFIELD CM [facility] DROPPED PATIENT BUT I FAXED ALL PAPERWORK TO [employer] AND [facility]. CALLED [facility] WHO ACCEPT[facility] PATIENT AND THEY WILL BE CONTACTING THE PATIENT DIRECTLY.
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
== END 2022-07-11 15:15 | disposition home health service (06) | DRG 871 ==
LOC: MED 12:59 → MTU 17:54
PROVIDERS: ADMIT Student in an Organized Health Care Education/Training Program; ATTEND Student in an Organized Health Care Education/Training Program
DX: A41.9 Sepsis, unspecified organism (principal); N17.0 Acute kidney failure with tubular necrosis; L03.116 Cellulitis of left lower limb; D84.9 Immunodeficiency, unspecified; E87.1 Hypo-osmolality and hyponatremia; E87.20 Acidosis, unspecified; E44.0 Moderate protein-calorie malnutrition; L89.319 Pressure ulcer of right buttock, unspecified stage; E11.65 Type 2 diabetes mellitus with hyperglycemia; Z68.31 Body mass index [BMI] 31.0-31.9, adult; E66.01 Morbid (severe) obesity due to excess calories; E78.5 Hyperlipidemia, unspecified; E86.1 Hypovolemia; E87.6 Hypokalemia; I12.9 Hypertensive chronic kidney disease with stage 1 through stage 4 chronic kidney disease, or unspecified chronic kidney disease; E11.22 Type 2 diabetes mellitus with diabetic chronic kidney disease; N18.9 Chronic kidney disease, unspecified
CPT/HCPCS: 36415; 73700; 80048; 80053; 80202; 81001; 82570; 82948; 83036; 83605; 83690; 85025; 87040; 87081; 87086; 93971; 96365; 96375; 99291; A6248; J0696; J1644; J1815; J2270; J2405; J2543; J3370; J7030; J7060; P9046; Q0092

== ENCOUNTER 2023-01-05 08:23 | Inpatient (IN) | payer OTHER, MEDICAID ==
[~2023-01-05] VITALS: Ht 170.2 cm; Wt 106.8 kg
[~2023-01-05 08:23] MED LIST changes: +CEPH-588 PO; +SULF-59 PO
[2023-01-05 08:35] VITALS: BP 106/63; PULSE 118; RESP 20; TEMP 101; O2SAT 95
[2023-01-05] MEDS ORDERED: NACL 0.9% 1,000 ML IV ONE ×2 (08:55→10:50)
[2023-01-05] MEDS ORDERED: ONDANSETRON 4 MG/2 ML VIAL IVP ONE (08:55)
[2023-01-05] MEDS ORDERED: cefTRIAXone 1,000 MG in DEXT 5% MINI-BAG PLUS 50 ML IV ONE (09:15)
[2023-01-05] MEDS ORDERED: cefTRIAXone 1,000 MG VIAL ONE (09:49)
[2023-01-05 10:02] LABS: BASOPHILS % (AUTO) 0.2 % (0.0-2.0); HEMATOCRIT 30.8 % (36-52); HEMOGLOBIN 10.1 g/dL (12.0-18.0); LYMPHOCYTES # (AUTO) 0.6 K/uL (2.0-11.5); LYMPHOCYTES % (AUTO) 4.2 % (20.5-51.1); MEAN CORPUSCULAR HEMOGLOBIN 28 pg (27-31); MEAN CORPUSCULAR HGB CONC 33 g/dL (33-37); MEAN CORPUSCULAR VOLUME 86.4 fL (80-94); MONOCYTES # (AUTO) 0.3 K/uL (0.8-1.0); MONOCYTES % (AUTO) 2.1 % (1.7-9.3); NEUTROPHILS # (AUTO) 13.1 K/uL (1.8-7.7); NEUTROPHILS % (AUTO) 93.5 % (42.2-75.2); PLATELET COUNT (AUTO) 217 K/uL (140-450); RED BLOOD CELL COUNT(AUTO) 3.57 MIL/uL (4.20-6.10); RED CELL DISTRIBUTION WIDTH 16.8 % (11.6-13.7)
[2023-01-05 10:06] LABS: ALBUMIN 2.5 g/dL (3.4-5.0); ANION GAP 17.6 (8-16); CALCIUM 7.7 mg/dL (8.5-10.1); CARBON DIOXIDE 23.3 mmol/L (21-32); CREATININE 1.7 mg/dL (0.6-1.3); POTASSIUM 3.9 mmol/L (3.5-5.1); TOTAL BILIRUBIN 0.4 mg/dL (0.0-1.0); TOTAL PROTEIN, SERUM 8.3 g/dL (6.4-8.2)
[2023-01-05 10:24] LABS: LACTIC ACID 3.7 mmol/L (0.4-2.0)
[2023-01-05] MEDS ORDERED: DEXT 5% / NACL 0.45% 1,000 ML IV SCH (10:50)
[2023-01-05] MEDS ORDERED: MORPHINE SULFATE 4 MG/ML SYR IVP ONE (11:15)
[2023-01-05] MEDS ORDERED: fentaNYL citrate 0.05 MG/ML VIAL IVP ONE (12:15)
[2023-01-05] MEDS ORDERED: VANCOMYCIN PER PHARMACY MC PRN (14:30)
[2023-01-05] MEDS ORDERED: TOBRAMYCIN PER PHARMACY MC PRN (14:30)
[2023-01-05] MEDS ORDERED: TOBRAMYCIN 100 MG in DEXTROSE 5% 100 ML IV ONE (14:30)
[2023-01-05] MEDS ORDERED: VANCOMYCIN 1,000 MG VIAL ONE (14:46)
[2023-01-05] MEDS ORDERED: VANCOMYCIN 1,000 MG in DEXTROSE 5% 250 ML IV SCH (15:00)
[2023-01-05] MEDS: NACL 0.9% 1,000 ML IV SCH (15:30)
[2023-01-05] MEDS ORDERED: GABAPENTIN 300 MG CAP ONE (15:44)
[2023-01-05] MEDS: GABAPENTIN 300 MG CAP PO SCH (15:45)
[2023-01-05 16:13] LABS: APPEARANCE,URINE HAZY (CLEAR); BILIRUBIN,URINE NEGATIVE (NEGATIVE); BLOOD, URINE 2+ (NEGATIVE); COLOR,URINE YELLOW (YELLOW); LEUKOCYTE ESTERASE ,URINE NEGATIVE (NEGATIVE); NITRITE, URINE NEGATIVE (NEGATIVE); PROTEIN,URINE 1+ (NEGATIVE); UGLUCOSE NEGATIVE (NEGATIVE); UROBILINOGEN,URINE 0.2 EU/dL (0.2 - 1)
[2023-01-05 16:33] LABS: BACTERIA,URINE 2+ /HPF (None Seen); MUCUS,URINE 2+ /LPF (None Seen); RBC,URINE 11-20 (MOD) /HPF (0-5); SQUAMOUS EPITHELIAL CELL,UR 20-50 /LPF (0-3 (FEW)); TRICHOMONAS,URINE None Seen /HPF (None Seen); WBC,URINE 0-5 /HPF (0-5); YEAST,URINE None Seen /HPF (None Seen)
[2023-01-05 16:47] VITALS: RESP 20; O2SAT 100
[2023-01-05] MEDS ORDERED: TOBRAMYCIN 120 MG in DEXTROSE 5% 100 ML IV SCH (17:00)
[2023-01-05 17:11] VITALS: BP 119/59; PULSE 116; RESP 18; TEMP 101.6; O2SAT 99
[2023-01-05] MEDS: ACETAMINOPHEN 325 MG TAB PO PRN ×2 (17:18→21:31)
[2023-01-05] MEDS ORDERED: FOAM DRESSING TP PRN (17:30)
[2023-01-05 20:00] VITALS: BP 123/61; PULSE 78; PULSE 88; RESP 19; TEMP 101.6; O2SAT 99
[2023-01-05] MEDS: NACL 0.9% IRR 250 ML BOTTLE IR SCH (21:00)
[2023-01-05] MEDS: ATORVASTATIN 20 MG TAB PO SCH (21:28)
[2023-01-05] MEDS: TAMSULOSIN 0.4 MG CAP PO SCH (21:30)
[2023-01-05] MEDS: FUROSEMIDE 20 MG TAB PO SCH (21:30)
[2023-01-05] MEDS: HYDROcodone/APAP 5/325 MG 1 TAB TAB PO PRN (21:30)
[2023-01-05] MEDS: ONDANSETRON 4 MG/2 ML VIAL IVP PRN (21:31)
[2023-01-06] VITALS: BP 131/62; PULSE 89; RESP 19; TEMP 99.1; O2SAT 99
[2023-01-06 04:00] VITALS: BP 113/59; PULSE 102; RESP 22; TEMP 99.8; O2SAT 99
[2023-01-06] MEDS: HYDROcodone/APAP 5/325 MG 1 TAB TAB PO PRN ×2 (05:15→09:51)
[2023-01-06] MEDS: ACETAMINOPHEN 325 MG TAB PO PRN ×2 (05:18→16:19)
[2023-01-06] MEDS: NACL 0.9% 1,000 ML IV SCH (05:22)
[2023-01-06 05:56] LABS: BASOPHILS % (AUTO) 0.1 % (0.0-2.0); EOSINOPHILS % (AUTO) 0.1 % (0.0-4.0); HEMATOCRIT 30.4 % (36-52); HEMOGLOBIN 9.8 g/dL (12.0-18.0); LYMPHOCYTES # (AUTO) 0.8 K/uL (2.0-11.5); LYMPHOCYTES % (AUTO) 4.4 % (20.5-51.1); MEAN CORPUSCULAR HEMOGLOBIN 28 pg (27-31); MEAN CORPUSCULAR HGB CONC 32 g/dL (33-37); MEAN CORPUSCULAR VOLUME 87.6 fL (80-94); MONOCYTES # (AUTO) 0.4 K/uL (0.8-1.0); MONOCYTES % (AUTO) 2.2 % (1.7-9.3); NEUTROPHILS # (AUTO) 17.5 K/uL (1.8-7.7); NEUTROPHILS % (AUTO) 93.2 % (42.2-75.2); PLATELET COUNT (AUTO) 184 K/uL (140-450); RED BLOOD CELL COUNT(AUTO) 3.47 MIL/uL (4.20-6.10); RED CELL DISTRIBUTION WIDTH 16.9 % (11.6-13.7); WHITE BLOOD COUNT (AUTO) 18.7 K/uL (4.8-10.8)
[2023-01-06 06:38] LABS: ALBUMIN 2.1 g/dL (3.4-5.0); ANION GAP 14.4 (8-16); CALCIUM 7.1 mg/dL (8.5-10.1); CARBON DIOXIDE 26.3 mmol/L (21-32); CREATININE 1.2 mg/dL (0.6-1.3); MAGNESIUM 1.4 mg/dL (1.8-2.4); PHOSPHORUS 3.1 mg/dL (2.5-4.9); POTASSIUM 3.7 mmol/L (3.5-5.1); TOTAL BILIRUBIN 0.5 mg/dL (0.0-1.0); TOTAL PROTEIN, SERUM 7.9 g/dL (6.4-8.2)
[2023-01-06 08:00] VITALS: BP 120/65; PULSE 76; RESP 18; TEMP 98.9; O2SAT 98
[2023-01-06 08:43] VITALS: PULSE 68
[2023-01-06] MEDS ORDERED: MULTIVITAMIN PO SCH (09:00)
[2023-01-06] MEDS: MULTIVITAMIN 1 TAB PO SCH (09:50)
[2023-01-06] MEDS: ECOTRIN 81 MG TABEC PO SCH (09:50)
[2023-01-06] MEDS: GABAPENTIN 300 MG CAP PO SCH ×3 (09:51→18:08)
[2023-01-06] MEDS: SPIRONOLACTONE 25 MG TAB PO SCH (09:51)
[2023-01-06] MEDS: FUROSEMIDE 20 MG TAB PO SCH ×2 (09:51→20:33)
[2023-01-06] MEDS: NACL 0.9% IRR 250 ML BOTTLE IR SCH ×2 (09:54→21:00)
[2023-01-06] MEDS ORDERED: MAG SULF 2000 MG/WATER PREMIX 50 ML IV SCH (11:00)
[2023-01-06] MEDS: VANCOMYCIN 1,000 MG in NACL 0.9% 250 ML IV SCH ×2 (11:23→22:21)
[2023-01-06 12:18] LABS: LACTIC ACID 1.3 mmol/L (0.4-2.0)
[2023-01-06] MEDS: GAUZE TP SCH (13:11)
[2023-01-06] MEDS ORDERED: NON ADHERENT DRESSING TP SCH (13:25)
[2023-01-06] MEDS ORDERED: Z-GUARD PASTE TP PRN (14:25)
[2023-01-06] MEDS ORDERED: VALS40TA3 PO (15:51)
[2023-01-06] MEDS ORDERED: VALSARTAN 80 MG TAB PO SCH (15:58)
[2023-01-06 20:00] VITALS: BP 128/71; PULSE 105; RESP 18; TEMP 98.7; O2SAT 99
[2023-01-06] MEDS: TAMSULOSIN 0.4 MG CAP PO SCH (20:29)
[2023-01-06] MEDS: ATORVASTATIN 20 MG TAB PO SCH (20:34)
[2023-01-07] MEDS: Z-GUARD PASTE TP SCH ×2 (02:27→18:46)
[2023-01-07 04:00] VITALS: BP 131/74; PULSE 105; RESP 18; TEMP 98.7; O2SAT 98
[2023-01-07 08:00] VITALS: PULSE 113; RESP 20; O2SAT 99
[2023-01-07] MEDS: NACL 0.9% IRR 250 ML BOTTLE IR SCH ×2 (09:00→21:00)
[2023-01-07] MEDS: ECOTRIN 81 MG TABEC PO SCH (09:22)
[2023-01-07] MEDS: FUROSEMIDE 20 MG TAB PO SCH ×2 (09:22→21:43)
[2023-01-07] MEDS: SPIRONOLACTONE 25 MG TAB PO SCH (09:23)
[2023-01-07] MEDS: GABAPENTIN 300 MG CAP PO SCH ×3 (09:24→18:42)
[2023-01-07] MEDS: VALSARTAN 80 MG TAB PO SCH (09:24)
[2023-01-07] MEDS: MULTIVITAMIN 1 TAB PO SCH (09:24)
[2023-01-07] MEDS: HYDROcodone/APAP 5/325 MG 1 TAB TAB PO PRN ×2 (09:26→21:45)
[2023-01-07] MEDS: CHLORHEXADINE GLUC 2% CLOTH TP SCH (11:15)
[2023-01-07] MEDS: VANCOMYCIN 1,000 MG in NACL 0.9% 250 ML IV SCH ×2 (12:29→23:53)
[2023-01-07] MEDS: MUPIROCIN CA NASAL 2% 1GM TUBE NS SCH (12:30)
[2023-01-07] MEDS: GAUZE TP SCH (13:00)
[2023-01-07] MEDS: SKINTEGRITY HYDROGEL TP SCH (18:46)
[2023-01-07 20:00] VITALS: BP 118/99; PULSE 113; PULSE 87; RESP 18; RESP 20; TEMP 98.4; O2SAT 99
[2023-01-07] MEDS: TAMSULOSIN 0.4 MG CAP PO SCH (21:43)
[2023-01-07] MEDS: ATORVASTATIN 20 MG TAB PO SCH (21:43)
[2023-01-07] MEDS: ONDANSETRON 4 MG/2 ML VIAL IVP PRN (21:45)
[2023-01-07] MEDS ORDERED: VANCOMYCIN 1,000 MG VIAL ONE (23:43)
[2023-01-08] VITALS: BP 168/83; PULSE 74; RESP 18; TEMP 97.8; O2SAT 98
[2023-01-08] MEDS: Z-GUARD PASTE TP SCH ×2 (01:00→13:39)
[2023-01-08 07:02] LABS: BASOPHILS # (AUTO) 0.1 K/uL (0.00-0.22); BASOPHILS % (AUTO) 0.6 % (0.0-2.0); EOSINOPHILS # (AUTO) 0.1 K/uL (0-0.4); EOSINOPHILS % (AUTO) 0.9 % (0.0-4.0); HEMATOCRIT 28.6 % (36-52); HEMOGLOBIN 9.4 g/dL (12.0-18.0); LYMPHOCYTES # (AUTO) 1.2 K/uL (2.0-11.5); LYMPHOCYTES % (AUTO) 11.8 % (20.5-51.1); MEAN CORPUSCULAR HEMOGLOBIN 29 pg (27-31); MEAN CORPUSCULAR HGB CONC 33 g/dL (33-37); MONOCYTES # (AUTO) 0.8 K/uL (0.8-1.0); NEUTROPHILS # (AUTO) 8.1 K/uL (1.8-7.7); NEUTROPHILS % (AUTO) 78.7 % (42.2-75.2); PLATELET COUNT (AUTO) 180 K/uL (140-450); RED BLOOD CELL COUNT(AUTO) 3.29 MIL/uL (4.20-6.10); RED CELL DISTRIBUTION WIDTH 16.4 % (11.6-13.7); WHITE BLOOD COUNT (AUTO) 10.3 K/uL (4.8-10.8)
[2023-01-08 07:18] LABS: ANION GAP 11.1 (8-16); CALCIUM 7.7 mg/dL (8.5-10.1); CARBON DIOXIDE 28.5 mmol/L (21-32); CREATININE 0.9 mg/dL (0.6-1.3); POTASSIUM 3.6 mmol/L (3.5-5.1)
[2023-01-08 08:00] VITALS: BP 115/63; PULSE 100; RESP 19; TEMP 97.7; O2SAT 98
[2023-01-08] MEDS ORDERED: FOAM DRESSING TP SCH (09:00)
[2023-01-08] MEDS: VALSARTAN 80 MG TAB PO SCH (09:36)
[2023-01-08] MEDS: SPIRONOLACTONE 25 MG TAB PO SCH (09:36)
[2023-01-08] MEDS: MULTIVITAMIN 1 TAB PO SCH (09:37)
[2023-01-08] MEDS: ECOTRIN 81 MG TABEC PO SCH (09:37)
[2023-01-08] MEDS: FUROSEMIDE 20 MG TAB PO SCH ×2 (09:37→21:00)
[2023-01-08] MEDS: GABAPENTIN 300 MG CAP PO SCH ×3 (09:37→17:21)
[2023-01-08] MEDS: NACL 0.9% IRR 250 ML BOTTLE IR SCH (09:38)
[2023-01-08] MEDS: SKINTEGRITY HYDROGEL TP SCH (09:38)
[2023-01-08] MEDS: CHLORHEXADINE GLUC 2% CLOTH TP SCH (11:18)
[2023-01-08] MEDS: MUPIROCIN CA NASAL 2% 1GM TUBE NS SCH (11:18)
[2023-01-08] MEDS: GAUZE TP SCH (13:40)
[2023-01-08 16:00] VITALS: BP 116/65; PULSE 101; RESP 20; TEMP 98.1; O2SAT 96
[2023-01-08] MEDS: PIPERACILLIN/TAZOBACTAM 3.375 GM in DEXTROSE 5% 50 ML IV SCH (17:31)
[2023-01-08 20:00] VITALS: RESP 18; O2SAT 97
[2023-01-08] MEDS: TAMSULOSIN 0.4 MG CAP PO SCH (21:00)
[2023-01-08] MEDS: ATORVASTATIN 20 MG TAB PO SCH (21:00)
[2023-01-09] MEDS: Z-GUARD PASTE TP SCH ×2 (01:00→13:14)
[2023-01-09 04:00] VITALS: BP 136/70; PULSE 107; RESP 20; TEMP 97.5; O2SAT 97
[2023-01-09] MEDS: PIPERACILLIN/TAZOBACTAM 3.375 GM in DEXTROSE 5% 50 ML IV SCH ×4 (06:41→12:00)
[2023-01-09 07:27] LABS: BASOPHILS # (AUTO) 0.1 K/uL (0.00-0.22); BASOPHILS % (AUTO) 0.9 % (0.0-2.0); EOSINOPHILS # (AUTO) 0.1 K/uL (0-0.4); EOSINOPHILS % (AUTO) 1.8 % (0.0-4.0); HEMATOCRIT 31.1 % (36-52); HEMOGLOBIN 10.2 g/dL (12.0-18.0); LYMPHOCYTES % (AUTO) 13.8 % (20.5-51.1); MEAN CORPUSCULAR HEMOGLOBIN 28 pg (27-31); MEAN CORPUSCULAR HGB CONC 33 g/dL (33-37); MEAN CORPUSCULAR VOLUME 86.9 fL (80-94); MONOCYTES # (AUTO) 0.6 K/uL (0.8-1.0); MONOCYTES % (AUTO) 7.3 % (1.7-9.3); NEUTROPHILS # (AUTO) 5.7 K/uL (1.8-7.7); NEUTROPHILS % (AUTO) 76.2 % (42.2-75.2); PLATELET COUNT (AUTO) 201 K/uL (140-450); RED BLOOD CELL COUNT(AUTO) 3.58 MIL/uL (4.20-6.10); RED CELL DISTRIBUTION WIDTH 16.1 % (11.6-13.7); WHITE BLOOD COUNT (AUTO) 7.5 K/uL (4.8-10.8)
[2023-01-09 08:00] VITALS: RESP 20; TEMP 97.7; O2SAT 99
[2023-01-09] MEDS: VALSARTAN 80 MG TAB PO SCH (08:36)
[2023-01-09] MEDS: GABAPENTIN 300 MG CAP PO SCH ×2 (08:36→13:13)
[2023-01-09] MEDS: SPIRONOLACTONE 25 MG TAB PO SCH (08:36)
[2023-01-09] MEDS: ECOTRIN 81 MG TABEC PO SCH (08:37)
[2023-01-09] MEDS: FUROSEMIDE 20 MG TAB PO SCH (08:37)
[2023-01-09] MEDS: MULTIVITAMIN 1 TAB PO SCH (08:41)
[2023-01-09] MEDS: SKINTEGRITY HYDROGEL TP SCH (09:00)
[2023-01-09 09:28] LABS: ANION GAP 19.4 (8-16); CALCIUM 8.5 mg/dL (8.5-10.1); CARBON DIOXIDE 27.1 mmol/L (21-32); CREATININE 1.8 mg/dL (0.6-1.3); POTASSIUM 3.5 mmol/L (3.5-5.1)
[2023-01-09] MEDS ORDERED: VANCOMYCIN 1.25GM PREMIX 250 ML IV SCH (10:00)
[2023-01-09] MEDS: MUPIROCIN CA NASAL 2% 1GM TUBE NS SCH (11:19)
[2023-01-09] MEDS: CHLORHEXADINE GLUC 2% CLOTH TP SCH (11:20)
[2023-01-09 12:08] VITALS: BP 118/63; PULSE 73; RESP 18; TEMP 97.7; O2SAT 96
[2023-01-09] MEDS: GAUZE TP SCH (13:13)
[2023-01-09 13:20] VITALS: BP 118/63; PULSE 73; RESP 73; TEMP 97.7
== END 2023-01-09 14:55 | DRG 871 ==
LOC: MED 08:23 → MTU 10:49
PROVIDERS: ADMIT Preventive Medicine Preventive Medicine/Occupational Environmental Medicine; ATTEND Preventive Medicine Preventive Medicine/Occupational Environmental Medicine
DX: A41.9 Sepsis, unspecified organism (principal); E43 Unspecified severe protein-calorie malnutrition; N17.0 Acute kidney failure with tubular necrosis; E87.1 Hypo-osmolality and hyponatremia; E87.20 Acidosis, unspecified; L03.116 Cellulitis of left lower limb; J45.909 Unspecified asthma, uncomplicated; N40.0 Benign prostatic hyperplasia without lower urinary tract symptoms; E78.5 Hyperlipidemia, unspecified; E11.40 Type 2 diabetes mellitus with diabetic neuropathy, unspecified; D64.9 Anemia, unspecified; L89.159 Pressure ulcer of sacral region, unspecified stage; E11.65 Type 2 diabetes mellitus with hyperglycemia; E88.09 Other disorders of plasma-protein metabolism, not elsewhere classified; E83.51 Hypocalcemia; E66.9 Obesity, unspecified; I12.9 Hypertensive chronic kidney disease with stage 1 through stage 4 chronic kidney disease, or unspecified chronic kidney disease; E11.22 Type 2 diabetes mellitus with diabetic chronic kidney disease; N18.9 Chronic kidney disease, unspecified; R65.20 Severe sepsis without septic shock; Z79.899 Other long term (current) drug therapy; Z68.36 Body mass index [BMI] 36.0-36.9, adult
CPT/HCPCS: 36415; 71045; 73590; 73620; 73700; 80048; 80053; 80202; 81001; 83036; 83605; 83690; 83735; 83880; 84100; 84484; 85025; 87040; 87081; 93005; 93971; 96361; 96365; 96375; 99285; A6248; J0696; J2270; J2405; J2543; J3010; J3260; J3370; J3372; J3475; J7030; J7060; Q0092

== ENCOUNTER 2023-02-21 13:38 | Inpatient (IN) | payer OTHER ==
[~2023-02-21] VITALS: Ht 170.2 cm; Wt 95.7 kg
[~2023-02-21 13:38] MED LIST changes: -CEPH-588 PO; -SULF-59 PO; +VALS40TA3 PO
[2023-02-21 13:42] VITALS: BP 100/63; PULSE 102; RESP 22; TEMP 98.8; O2SAT 100
[2023-02-21] MEDS ORDERED: cefTRIAXone 1,000 MG in DEXT 5% MINI-BAG PLUS 50 ML IV ONE (16:20)
[2023-02-21] MEDS ORDERED: NACL 0.9% 1,000 ML IV SCH (16:20)
[2023-02-21] MEDS ORDERED: MORPHINE SULFATE 4 MG/ML SYR IVP ONE (16:20)
[2023-02-21] MEDS ORDERED: cefTRIAXone 1,000 MG VIAL ONE (17:03)
[2023-02-21 17:06] LABS: BASOPHILS # (AUTO) 0.1 K/uL (0.00-0.22); BASOPHILS % (AUTO) 0.7 % (0.0-2.0); EOSINOPHILS % (AUTO) 0.1 % (0.0-4.0); HEMATOCRIT 21.1 % (36-52); LYMPHOCYTES # (AUTO) 2.8 K/uL (2.0-11.5); LYMPHOCYTES % (AUTO) 14.8 % (20.5-51.1); MEAN CORPUSCULAR HEMOGLOBIN 28 pg (27-31); MEAN CORPUSCULAR HGB CONC 33 g/dL (33-37); MEAN CORPUSCULAR VOLUME 85.5 fL (80-94); MONOCYTES # (AUTO) 1.1 K/uL (0.8-1.0); MONOCYTES % (AUTO) 5.6 % (1.7-9.3); NEUTROPHILS # (AUTO) 14.8 K/uL (1.8-7.7); NEUTROPHILS % (AUTO) 78.8 % (42.2-75.2); PLATELET COUNT (AUTO) 366 K/uL (140-450); RED BLOOD CELL COUNT(AUTO) 2.47 MIL/uL (4.20-6.10); RED CELL DISTRIBUTION WIDTH 16.9 % (11.6-13.7); WHITE BLOOD COUNT (AUTO) 18.8 K/uL (4.8-10.8)
[2023-02-21 17:12] LABS: HEMOGLOBIN 6.9 g/dL (12.0-18.0)
[2023-02-21] MEDS ORDERED: NACL 0.9% 1,000 ML IV ONE ×2 (17:45→19:00)
[2023-02-21 17:47] LABS: ANION GAP 18.2 (8-16); CALCIUM 8.2 mg/dL (8.5-10.1); CARBON DIOXIDE 22.9 mmol/L (21-32); CREATININE 1.6 mg/dL (0.6-1.3); POTASSIUM 4.1 mmol/L (3.5-5.1)
[2023-02-21 18:03] LABS: APPEARANCE,URINE SL CLOUDY (CLEAR); BILIRUBIN,URINE NEGATIVE (NEGATIVE); BLOOD, URINE 1+ (NEGATIVE); COLOR,URINE YELLOW (YELLOW); LEUKOCYTE ESTERASE ,URINE 1+ (NEGATIVE); NITRITE, URINE NEGATIVE (NEGATIVE); PROTEIN,URINE 1+ (NEGATIVE); UGLUCOSE 3+ (NEGATIVE)
[2023-02-21 18:16] LABS: BACTERIA,URINE 10-30 (MOD) /HPF (None Seen); SQUAMOUS EPITHELIAL CELL,UR 0-3 (FEW) /LPF (0-3 (FEW))
[2023-02-21] MEDS ORDERED: EMPA10TA PO (18:33)
[2023-02-21] MEDS ORDERED: VANCOMYCIN PER PHARMACY MC PRN (19:00)
[2023-02-21 19:26] LABS: INR 1.02 (0.8-1.2); PARTIAL THROMBOPLASTIN TIME 35.5 secs (22-35.6); PROTHROMBIN TIME 10.7 secs (10.8-13.4)
[2023-02-21 22:30] VITALS: BP 103/46; PULSE 97; RESP 18; TEMP 98; O2SAT 100
[2023-02-21] MEDS: PIPERACILLIN/TAZOBACTAM 3.375 GM in DEXTROSE 5% 50 ML IV SCH (22:40)
[2023-02-21] MEDS ORDERED: VANCOMYCIN 750 MG in DEXTROSE 5% 250 ML IV SCH (23:00)
[2023-02-22 04:00] VITALS: BP 100/52; PULSE 82; RESP 18; TEMP 97.1; O2SAT 100
[2023-02-22] MEDS ORDERED: PIPERACILLIN/TAZOBACTAM 3.375 GM VIAL IV ONE (05:17)
[2023-02-22] MEDS: PIPERACILLIN/TAZOBACTAM 3.375 GM in DEXTROSE 5% 50 ML IV SCH ×3 (05:36→20:30)
[2023-02-22 06:59] LABS: BASOPHILS # (AUTO) 0.1 K/uL (0.00-0.22); BASOPHILS % (AUTO) 0.6 % (0.0-2.0); EOSINOPHILS # (AUTO) 0.2 K/uL (0-0.4); EOSINOPHILS % (AUTO) 1.9 % (0.0-4.0); HEMATOCRIT 27.1 % (36-52); HEMOGLOBIN 9.1 g/dL (12.0-18.0); LYMPHOCYTES # (AUTO) 2.3 K/uL (2.0-11.5); LYMPHOCYTES % (AUTO) 21.9 % (20.5-51.1); MEAN CORPUSCULAR HEMOGLOBIN 30 pg (27-31); MEAN CORPUSCULAR HGB CONC 34 g/dL (33-37); MEAN CORPUSCULAR VOLUME 88.3 fL (80-94); MONOCYTES # (AUTO) 0.9 K/uL (0.8-1.0); MONOCYTES % (AUTO) 8.2 % (1.7-9.3); NEUTROPHILS % (AUTO) 67.4 % (42.2-75.2); PLATELET COUNT (AUTO) 289 K/uL (140-450); RED BLOOD CELL COUNT(AUTO) 3.07 MIL/uL (4.20-6.10); RED CELL DISTRIBUTION WIDTH 16.3 % (11.6-13.7); WHITE BLOOD COUNT (AUTO) 10.4 K/uL (4.8-10.8)
[2023-02-22 07:25] LABS: ANION GAP 14.4 (8-16); CALCIUM 7.9 mg/dL (8.5-10.1); CARBON DIOXIDE 22.5 mmol/L (21-32); CREATININE 1.1 mg/dL (0.6-1.3); POTASSIUM 3.9 mmol/L (3.5-5.1); TOTAL BILIRUBIN 0.5 mg/dL (0.0-1.0); TOTAL PROTEIN, SERUM 7.3 g/dL (6.4-8.2)
[2023-02-22 07:26] LABS: LACTIC ACID 0.9 mmol/L (0.4-2.0)
[2023-02-22 08:00] VITALS: PULSE 97; RESP 18; RESP 20; O2SAT 100
[2023-02-22 09:01] LABS: HEMATOCRIT 28.5 % (36-52); HEMOGLOBIN 9.5 g/dL (12.0-18.0)
[2023-02-22] MEDS: VANCOMYCIN 1,000 MG in DEXTROSE 5% 250 ML IV SCH ×2 (10:45→21:16)
[2023-02-22] MEDS ORDERED: ACETAMINOPHEN 325 MG TAB PO PRN (11:25)
[2023-02-22] MEDS ORDERED: MAG SULF 2000 MG/WATER PREMIX 50 ML IV PRN (11:25)
[2023-02-22] MEDS ORDERED: ONDANSETRON 4 MG/2 ML VIAL IVP PRN (11:25)
[2023-02-22] MEDS ORDERED: POTASSIUM CHLORIDE 10 MEQ TABER PO PRN (11:25)
[2023-02-22] MEDS ORDERED: ZOLPIDEM 10 MG TAB PO PRN (11:25)
[2023-02-22] MEDS ORDERED: DEXTROSE 50% 50 ML SYR IVP PRN (11:40)
[2023-02-22] MEDS: MORPHINE SULFATE 2 MG/ML SYR IVP PRN (12:55)
[2023-02-22 13:55] VITALS: TEMP 98.4
[2023-02-22 14:55] VITALS: BP 148/53; PULSE 63; RESP 18; TEMP 97.6; O2SAT 93
[2023-02-22] MEDS: BLOOD GLUCOSE MONITORING 1 DEV DEV FS SCH ×2 (16:42→20:34)
[2023-02-22] MEDS: INSULIN LISPRO SLIDING SCALE 100 UNITS/ML VIAL SUBQ PRN (16:43)
[2023-02-22 20:00] VITALS: PULSE 106; PULSE 91; RESP 18; TEMP 97.6; O2SAT 91
[2023-02-22 22:55] VITALS: BP 94/53; PULSE 106; RESP 18; TEMP 97.6; O2SAT 93
[2023-02-23] MEDS: PIPERACILLIN/TAZOBACTAM 3.375 GM in DEXTROSE 5% 50 ML IV SCH ×2 (04:20→13:30)
[2023-02-23 06:00] LABS: HEMATOCRIT 29.1 % (36-52); HEMOGLOBIN 9.5 g/dL (12.0-18.0); MEAN CORPUSCULAR HEMOGLOBIN 29 pg (27-31); MEAN CORPUSCULAR HGB CONC 33 g/dL (33-37); MEAN CORPUSCULAR VOLUME 88.7 fL (80-94); PLATELET COUNT (AUTO) 370 K/uL (140-450); RED BLOOD CELL COUNT(AUTO) 3.28 MIL/uL (4.20-6.10); RED CELL DISTRIBUTION WIDTH 16.1 % (11.6-13.7); WHITE BLOOD COUNT (AUTO) 21.3 K/uL (4.8-10.8)
[2023-02-23 06:31] LABS: ALBUMIN 0.8 g/dL (3.4-5.0); ANION GAP 13.9 (8-16); CALCIUM 7.8 mg/dL (8.5-10.1); CARBON DIOXIDE 21.9 mmol/L (21-32); CREATININE 1.1 mg/dL (0.6-1.3); POTASSIUM 3.8 mmol/L (3.5-5.1); TOTAL BILIRUBIN 0.4 mg/dL (0.0-1.0); TOTAL PROTEIN, SERUM 6.2 g/dL (6.4-8.2)
[2023-02-23] MEDS: BLOOD GLUCOSE MONITORING 1 DEV DEV FS SCH ×4 (06:33→21:03)
[2023-02-23 07:01] LABS: BASOPHILS % (MANUAL) 0 % (0-2); EOSINOPHILS % (MANUAL) 2 % (0-4); LYMPHOCYTES % (MANUAL) 11 % (20-46); MONOCYTES % (MANUAL) 2 % (5-12)
[2023-02-23 07:02] LABS: PLATELET ESTIMATE ADEQUATE
[2023-02-23 08:00] VITALS: BP 99/52; PULSE 94; RESP 20; TEMP 97.5; O2SAT 100
[2023-02-23] MEDS: VANCOMYCIN 1,000 MG in DEXTROSE 5% 250 ML IV SCH (09:31)
[2023-02-23] MEDS: MORPHINE SULFATE 2 MG/ML SYR IVP PRN (09:38)
[2023-02-23] MEDS: LOPERAMIDE 2 MG CAP PO PRN ×2 (09:51→22:34)
[2023-02-23] MEDS: INSULIN LISPRO SLIDING SCALE 100 UNITS/ML VIAL SUBQ PRN (13:29)
[2023-02-23 16:00] VITALS: BP 101/57; PULSE 76; RESP 18; TEMP 96.8; O2SAT 100
[2023-02-23 20:00] VITALS: PULSE 89; RESP 18; TEMP 97.5; O2SAT 98
[2023-02-23] MEDS ORDERED: MEROPENEM 1,000 MG VIAL IV ONE (20:52)
[2023-02-23] MEDS: MEROPENEM 1,000 MG in NACL 0.9% 50 ML IV SCH (20:59)
[2023-02-24] VITALS: BP 106/54; PULSE 89; RESP 18; TEMP 97.5; O2SAT 98
[2023-02-24] MEDS ORDERED: MEROPENEM 1,000 MG VIAL IV ONE (05:27)
[2023-02-24] MEDS: MEROPENEM 1,000 MG in NACL 0.9% 50 ML IV SCH ×2 (05:32→15:00)
[2023-02-24] MEDS: BLOOD GLUCOSE MONITORING 1 DEV DEV FS SCH ×2 (06:31→11:30)
[2023-02-24 06:39] LABS: ANION GAP 15.3 (8-16); CALCIUM 8.4 mg/dL (8.5-10.1); CARBON DIOXIDE 21.7 mmol/L (21-32); CREATININE 1.5 mg/dL (0.6-1.3); TOTAL BILIRUBIN 0.3 mg/dL (0.0-1.0); TOTAL PROTEIN, SERUM 7.6 g/dL (6.4-8.2)
[2023-02-24 08:00] VITALS: BP 102/66; PULSE 91; RESP 18; RESP 20; TEMP 97.5; TEMP 97.8; O2SAT 100; O2SAT 98
[2023-02-24 08:53] LABS: BASOPHILS # (AUTO) 0.1 K/uL (0.00-0.22); BASOPHILS % (AUTO) 0.5 % (0.0-2.0); EOSINOPHILS # (AUTO) 0.7 K/uL (0-0.4); EOSINOPHILS % (AUTO) 3.3 % (0.0-4.0); HEMOGLOBIN 9.6 g/dL (12.0-18.0); LYMPHOCYTES # (AUTO) 1.8 K/uL (2.0-11.5); LYMPHOCYTES % (AUTO) 9.1 % (20.5-51.1); MEAN CORPUSCULAR HEMOGLOBIN 30 pg (27-31); MEAN CORPUSCULAR HGB CONC 33 g/dL (33-37); MEAN CORPUSCULAR VOLUME 90.3 fL (80-94); MONOCYTES # (AUTO) 0.5 K/uL (0.8-1.0); MONOCYTES % (AUTO) 2.7 % (1.7-9.3); NEUTROPHILS % (AUTO) 84.4 % (42.2-75.2); PLATELET COUNT (AUTO) 387 K/uL (140-450); RED BLOOD CELL COUNT(AUTO) 3.22 MIL/uL (4.20-6.10); RED CELL DISTRIBUTION WIDTH 16.4 % (11.6-13.7); WHITE BLOOD COUNT (AUTO) 20.1 K/uL (4.8-10.8)
[2023-02-24] MEDS ORDERED: carvediloL 3.125 MG TAB PO SCH (09:00)
[2023-02-24] MEDS ORDERED: HUMSLIDE SUBQ (12:32)
[2023-02-24] MEDS ORDERED: MERO1VIA15 IV (12:32)
[2023-02-24] MEDS ORDERED: IMO2 PO (12:32)
[2023-02-24 13:15] VITALS: O2SAT 98
[2023-02-24] MEDS ORDERED: Z-GUARD PASTE TP PRN (14:15)
[2023-02-24] MEDS ORDERED: SKINTEGRITY HYDROGEL TP PRN (14:15)
[2023-02-24 16:14] VITALS: BP 102/66; PULSE 91; RESP 20; TEMP 97.5
[2023-02-25] MEDS ORDERED: Z-GUARD PASTE TP SCH (01:00)
[2023-02-25] MEDS ORDERED: SKINTEGRITY HYDROGEL TP SCH (13:00)
[2023-02-25] MEDS ORDERED: GAUZE TP SCH (13:00)
== END 2023-02-24 16:40 | DRG 871 ==
LOC: MED 13:38 → MTU 17:23
PROVIDERS: ADMIT Family Medicine; ATTEND Family Medicine
PROC: 30233N1 Transfusion of Nonautologous Red Blood Cells into Peripheral Vein, Percutaneous Approach (ICD-10-PCS; principal; 2023-02-21)
DX: A41.9 Sepsis, unspecified organism (principal); E43 Unspecified severe protein-calorie malnutrition; L89.153 Pressure ulcer of sacral region, stage 3; N17.9 Acute kidney failure, unspecified; N39.0 Urinary tract infection, site not specified; L03.116 Cellulitis of left lower limb; E22.2 Syndrome of inappropriate secretion of antidiuretic hormone; B96.20 Unspecified Escherichia coli [E. coli] as the cause of diseases classified elsewhere; D64.9 Anemia, unspecified; E11.65 Type 2 diabetes mellitus with hyperglycemia; E11.22 Type 2 diabetes mellitus with diabetic chronic kidney disease; I12.9 Hypertensive chronic kidney disease with stage 1 through stage 4 chronic kidney disease, or unspecified chronic kidney disease; N18.9 Chronic kidney disease, unspecified; Z68.33 Body mass index [BMI] 33.0-33.9, adult
CPT/HCPCS: 36415; 36430; 71045; 80048; 80053; 80202; 81001; 82948; 83605; 83880; 84484; 85018; 85025; 85610; 85730; 86886; 86900; 86901; 86920; 87040; 87070; 87081; 87086; 93005; 96361; 96365; 99285; J0696; J1644; J2185; J2270; J2543; J3370; J7060; P9016